=== PATIENT | female | born 1985 | race Caucasian/White ===

== ENCOUNTER → 2020-07-29 | Outpatient (CLI) | payer OTHER | LOC: M LABSMTC 10:36 | PROVIDERS: ATTEND Family Medicine | DX: Z20.828 Contact with and (suspected) exposure to other viral communicable diseases (principal) ==

== ENCOUNTER → 2020-08-04 | Outpatient (CLI) | payer SELFPAY | LOC: M LABSMTC 11:35 | PROVIDERS: ATTEND Pediatrics | DX: Z20.828 Contact with and (suspected) exposure to other viral communicable diseases (principal) ==

== ENCOUNTER 2020-09-15 18:33 | Inpatient (IN) | payer OTHER ==
[~2020-09-15] VITALS: Ht 148.6 cm; Wt 100.7 kg
[2020-09-15 20:15] VITALS: BP 146/93
[2020-09-15] MEDS ORDERED: NAPR220C23 PO (20:39)
--- NOTE | 2020-09-15 21:28 | HPEPDOC ---
General Date of Admission Sep 15, 2020 at 20:14 Date of Service: Sep 15, 2020 Chief Complaint The patient is a 35-year-old female admitted with a reason for visit of Obstructed Jaundice. Source: Patient Exam Limitations: No limitations Timing/Duration: Day(s) Severity: Moderate History of Present Illness Patient is 35 years old female with past medical history of gestational of diabetes presented to the hospital with right upper abdominal pain. Patient was transferred from [facility]. Patient stated that for past 4 days she has been having intermittent right upper quadrant pain with radiation to the back and to the right shoulder associated with nausea and vomiting. In the [facility] labs pertinent for white blood count 7.5, hemoglobin 14.8, glucose level 117, [id number], [id number], alkaline phosphatase 265, total bilirubin 5.4, lipase 113. CT abdomen and pelvis from a [facility] report: Distended gallbladder, not inflamed. Home Medications Scheduled PRN Naproxen Sodium (Naproxen Sodium) 220 Mg Capsule, 220 MG PO Q12H PRN for PAIN, (Reported) Allergies Coded Allergies: No Known Allergies (Verified Allergy, Unknown, 09/15/20) Past Medical History Medical History Gestational diabetes Family History I personally reviewed family history and found not pertinent Social History * Smoker: former Smoker Alcohol: Denies Drugs: denies A-FIB/CHADSVASC A-FIB History Current/History of A-Fib/PAF?: No Current PO Anticoag Therapy: No Review of Systems Constitutional: Denies: Chills Eyes: Denies: Pain, Vision change ENT: Denies: Head Aches Skin: Denies: Rash, Lesions Pulmonary: Denies: Dyspnea Cardiovascular: Denies: Chest Pain Gastrointestinal: Reports: Nausea, Vomiting, Abdominal Pain Genitourinary: Denies: Dysuria, Frequency Hematologic: Denies: Bruising Endocrine: Denies: Polydipsia Musculoskeletal: Denies: Neck Pain Neurological: Denies: Weakness Psych: Reports: Mood Normal Physical Examination General Exam: Positive: Alert, Cooperative Eye Exam: Positive: PERRLA ENT Exam: Positive: Atraumatic Neck Exam: Positive: Supple; Negative: JVD Chest Exam: Positive: Clear to auscultation Heart Exam: Positive: Rate Normal Telemetry: Positive: No significant arrhythmia Abdomen Exam: Positive: BS Hypoactive, Soft, Tenderness (right upper quadrant) Extremity Exam: Negative: Clubbing Skin Exam: Positive: Nl turgor and temperature Neuro Exam: Positive: Strength at 5/5 X4 ext Psych Exam: Positive: Mental status NL Assessment/Plan Patient is 35 years old female with past medical history of gestational of diabetes presented to the hospital with right upper abdominal pain. Patient was transferred from [facility]. Patient stated that for past 4 days she has been having intermittent right upper quadrant pain with radiation to the back and to the right shoulder associated with nausea and vomiting. In the [facility] labs pertinent for white blood count 7.5, hemoglobin 14.8, glucose level 117, [id number], GVO142, alkaline phosphatase 265, total bilirubin 5.4, lipase 113. CT abdomen and pelvis from a [facility] report: Distended gallbladder, not inflamed. Problems (1) Right upper quadrant abdominal pain Status: Acute Problem Text: Most likely secondary to choledocholithiasis Right upper quadrant ultrasound Consider GI consult in the morning. Nothing by mouth after midnight IV fluid Pain management Plan / VTE VTE Prophylaxis Ordered?: Yes MARKUS GARCIA DO Sep 15, 2020 21:28
[2020-09-15] MEDS ORDERED: ACETAMINOPHEN TAB 650MG DOSE (2X325MG) PO PRN (21:30)
[2020-09-15 22:20] LABS: INR 0.95; PROTHROMBIN TIME 12.9 SECONDS (12.5-14.3)
[2020-09-15 22:21] LABS: PARTIAL THROMBOPLASTIN TIME 27.5 SECONDS (24.2-38.5)
--- NOTE | 2020-09-15 22:28 | REPVR ---
PROCEDURE INFORMATION: Exam: US Abdomen, Limited; Right Upper Quadrant Exam date and time: 09/15/2020 10:16 PM Age: 35 years old Clinical indication: Abdominal pain; Acute; Additional info: Common bile duct dilatation TECHNIQUE: Imaging protocol: US abdomen. Real time ultrasound with image documentation. Limited exam focused on the right upper quadrant. COMPARISON: No relevant prior studies available. FINDINGS: Liver: The liver is echogenic and attenuating. Gallbladder: The gallbladder demonstrates multiple shadowing stones and sludge and measures 5.5 cm in diameter consistent with mild distention. The gallbladder demonstrates no wall thickening measuring 2-3 mm. There is slight pericholecystic fluid. Common bile duct: The CBD measures 10 mm with a shadowing intraductal stone measuring 11 mm. Pancreas: The pancreas appears grossly normal in the head and body. The tail is obscured by gas. Right kidney: The right kidney demonstrates no hydronephrosis and measures 12.2 cm. IMPRESSION: 1. Cholelithiasis with stones and sludge and mild gallbladder distention measuring 5.5 cm in diameter. There is no wall thickening but some pericholecystic fluid and may reflect cholecystitis. 2. Choledocholithiasis with distention of the CBD measuring 10 mm. 3. Fatty infiltration of the liver. Electronically signed by: Erich Vences On 09/15/2020 22:28:26 PM
[2020-09-15 22:39] LABS: ALBUMIN 3.8 GM/DL (3.2-5.2); ALT/SGPT 844 U/L (12-78); BILIRUBIN,TOTAL 5.4 MG/DL (0.2-1.0); BLOOD UREA NITROGEN 4 MG/DL (7-18); CALCIUM LEVEL 9.1 MG/DL (8.5-10.1); CARBON DIOXIDE LEVEL 28 MEQ/L (21-32); CHLORIDE LEVEL 104 MEQ/L (98-107); CREATININE FOR GFR 0.71 MG/DL (0.55-1.30); GLOMERULAR FILTRATION RATE > 60.0 (>60); GLUCOSE, FASTING 97 MG/DL (70-100); LIPASE 94 U/L (73-393); MAGNESIUM LEVEL 2.1 MG/DL (1.8-2.4); POTASSIUM SERUM 3.6 MEQ/L (3.5-5.1); SODIUM LEVEL 140 MEQ/L (136-145); TOTAL PROTEIN 7.8 GM/DL (6.4-8.2)
[2020-09-15] MEDS: NS 1,000 ML IV SCH (23:01)
[2020-09-15] MEDS: KETOROLAC 30 MG/ML 1ML VIAL IV PRN (23:06)
[2020-09-16] VITALS (8 sets, daily range): BP systolic 129–151; BP diastolic 65–95
[2020-09-16] MEDS ORDERED: ONDANSETRON 4MG/2ML VIAL IV PRN ×2 (01:00→19:30)
[2020-09-16 06:33] LABS: HEMATOCRIT 43.4 % (36.0-47.0); HEMOGLOBIN 14.1 g/dl (12.0-15.5); MEAN CORPUSCULAR HGB CONC 32.5 g/dl (32.0-36.5); MEAN CORPUSCULAR VOLUME 89.3 fl (80.0-96.0); PLATELET COUNT, AUTOMATED 253 10^3/uL (150-450); RED BLOOD COUNT 4.86 10^6/uL (4.00-5.40); WHITE BLOOD COUNT 6.8 10^3/uL (4.0-10.0)
[2020-09-16 07:20] LABS: ALBUMIN 3.5 GM/DL (3.2-5.2); ALT/SGPT 789 U/L (12-78); BILIRUBIN,TOTAL 5.5 MG/DL (0.2-1.0); BLOOD UREA NITROGEN 7 MG/DL (7-18); CALCIUM LEVEL 8.7 MG/DL (8.5-10.1); CARBON DIOXIDE LEVEL 27 MEQ/L (21-32); CHLORIDE LEVEL 107 MEQ/L (98-107); CREATININE FOR GFR 0.69 MG/DL (0.55-1.30); GLOMERULAR FILTRATION RATE > 60.0 (>60); GLUCOSE, FASTING 90 MG/DL (70-100); MAGNESIUM LEVEL 2.1 MG/DL (1.8-2.4); POTASSIUM SERUM 4.1 MEQ/L (3.5-5.1); SODIUM LEVEL 140 MEQ/L (136-145); TOTAL PROTEIN 7.2 GM/DL (6.4-8.2); TRIGLYCERIDES LEVEL 83 MG/DL (<150)
[2020-09-16] MEDS: ENOXAPARIN 40MG/0.4ML SYRINGE (J1650 PER 10MG) SC SCH (09:09)
[2020-09-16] MEDS: NS 1,000 ML IV SCH (09:09)
[2020-09-16] MEDS: KETOROLAC 30 MG/ML 1ML VIAL IV PRN ×2 (09:10→15:14)
--- NOTE | 2020-09-16 12:00 | IPNPDOC ---
Text Note Date of Service The patient was seen on 09/16/20. NOTE Subjective: No any acute events overnight. Objective: GENERAL APPEARANCE: NAD HEENT: no scleral icterus, no JVD, EOMI CARDIOVASCULAR: S1S2 LUNGS: CTA ABDOMEN: soft & right upper quadrant mildly tender w palpitation MUSCULOSKELETAL: no cyanosis, no swelling INTEGUMENT: no generalized pallor NEUROLOGICAL: cranial nerve function from 2-12 intact intact, follows commands, speech not dysarthric Assessment/Plan Patient is 35 years old female with past medical history of gestational of diabetes presented to the hospital with right upper abdominal pain. Patient was transferred from [facility]. Patient stated that for past 4 days she has been having intermittent right upper quadrant pain with radiation to the back and to the right shoulder associated with nausea and vomiting. In the [facility] labs pertinent for white blood count 7.5, hemoglobin 14.8, glucose level 117, [id number], [id number], alkaline phosphatase 265, total bilirubin 5.4, lipase 113. CT abdomen and pelvis from a [facility] report: Distended gallbladder, not inflamed. Problems (1) Right upper quadrant abdominal pain Most likely secondary to choledocholithiasis Right upper quadrant ultrasound showed 1. Cholelithiasis with stones and sludge and mild gallbladder distention measuring 5.5 cm in diameter. There is no wall thickening but some pericholecystic fluid and may reflect cholecystitis. 2. Choledocholithiasis with distention of the CBD measuring 10 mm. GI team will proceed with ERCP IV fluid Pain management VS,Fishbone, I+O VS, Fishbone, I+O Laboratory Tests 09/15/20 21:49 09/16/20 05:29 Vital Signs Date Time Temp Pulse Resp B/P (MAP) Pulse Ox O2 Delivery O2 Flow Rate FiO2 09/16/20 06:00 96.4 71 20 150/88 (108) 99 09/15/20 20:15 Room Air I&O- Last 24 Hours up to 6 AM 09/16/20 06:00 Intake Total 0 ml Output Total 400 ml Balance -400 ml MARKUS GARCIA DO Sep 16, 2020 12:00
--- NOTE | 2020-09-16 13:36 | CR.PDOC ---
General Date of Consultation: Sep 16, 2020 Referring Provider: MARKUS PEREZ DO Attending Physician: BRAYDEN MEDINA MD Consultation Referring physician/ hospitalist: Dr. Perez Reason for consult: abnormal LFT HPI: 35 year old female with medical history of gestational diabetes mellitus and gestation hypertension who presented to the hospital due to persistent nausea and vomiting with RUQ pain. Patient reports symptoms of RUQ pain initially began 5 months ago, about 3 days after a vaginal delivery of her third child. Patient describes the pain as sharp and intermittent, radiating to the back and up to the right shoulder blade. She states this initial episode improved and she was feeling well for a period of time. She then was infected with COVID-19 in late July and notes she experienced nausea and decrease appetite with episodes of lightheadedness. This was improving until 5 days ago when her RUQ pain returned. This continued to be intermittent, not associated with eating or drinking. Patient reports vomiting which started 3 days ago, consisting of foods she had e aten. Patient denies seeing blood in the vomit. Since that time she has noticed softer stool with a chalky color, denies diarrhea or blood in stool. Patient also denies having any fevers. Patient reports 3 days ago she went to the ED at [facility] and was told she had gallstones. She returned to the ER again yesterday due to persistent symptoms including inability to tolerate eating due to vomiting. She does also report taking an over the counter supplement recently. Pertinent negative GI symptoms: Patient denies diarrhea, early satiety, unintentional weight loss, hematemesis, melena, or hematochezia. Review of Systems: GI: as stated above CVS: No chest pain. No palpitations. No leg swelling. RS: No shortness of breath. No Wheezing. No cough. 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 No focal motor or sensory loss. Hematology: No easy bruising. No gum bleeding. Musculoskeletal: No joint pain, ambulating well. : No hematuria. No burning sensation of the urine. ENT: No ear discharge/pain. No dysphagia. Eyes: No photophobia. Skin: No rash Home medications: reviewed. No anticoagulants. No antiplatelets. Medical h/o: As above. Surgical h/o: None on abdomen. Social h/o: Denies alcohol, smoking, IVDA/other illicit substances Family h/o of GI cancers - None Prior Endoscopies: None Prior GI evaluations: None Exam: Vitals: reviewed General: Alert and oriented x 3, not in acute distress HEENT: Scleral icterus present. No pallor. Normal oropharynx, No cervical lymphadenopathy. Chest: symmetric with bilateral air entry, clear to auscultation. CVS: S1 and S2 heard, normal, no murmurs. Abdomen: mildly tender to deep palpation in the RUQ, obese, non-distended, soft, no rigidity or guarding, no palpable masses, normal bowel sounds auscultated. Rectal exam: Deferred at this time. Extremities: Pulses palpable, no pedal edema. 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 Moves all extremities Skin: No rash or jaundice. Labs: reviewed. Imaging: reviewed. Impression: -- Acute onset nausea, vomiting and upper abdominal pain and labs showing cholestatic liver panel and ultrasound showing Cholelithiasis and CBD stone with dilated CBD of 1cm. -- DDx-- Choledocholithiasis. Recommendations: -- NPO for now. -- IV hydration - prefer ringers lactate. -- Will schedule for ERCP today. Patient is educated about the procedure, in dications, risks ( including but not limited to acute pancreatitis, bleeding, infection, perforation, and other complicated related to them and anesthesia complication), benefits, alternatives including conservative monitoring. Patient verbalized understanding and consented for the procedure. -- Follow operative note for post procedure recommendations. Plan of care discussed with patient and primary team. Patient verbalized understanding and agreed with the plan. Vital Signs/I&O Vital Signs Date Time Temp Pulse Resp B/P (MAP) Pulse Ox O2 Delivery O2 Flow Rate FiO2 09/16/20 06:00 96.4 71 20 150/88 (108) 99 09/15/20 20:15 Room Air I&O- Last 24 Hours up to 6 AM 09/16/20 06:00 Intake Total 0 ml Output Total 400 ml Balance -400 ml Laboratory Data Labs 24H Laboratory Tests 2 09/15/20 21:49: Prothrombin Time 12.9, Prothromb Time International Ratio 0.95, Activated Partial Thromboplast Time 27.5, Anion Gap 8, Glomerular Filtration Rate > 60.0, Calcium Level 9.1, Magnesium Level 2.1, Total Bilirubin 5.4H, Aspartate Amino Transf (AST/SGOT) 428H, Alanine Aminotransferase (ALT/SGPT) 844H, Alkaline Phosphatase 266H, Total Protein 7.8, Albumin 3.8, Albumin/Globulin Ratio 1.0L, Lipase 94 09/16/20 05:29: Anion Gap 6L, Glomerular Filtration Rate > 60.0, Calcium Level 8.7, Magnesium Level 2.1, Total Bilirubin 5.5H, Aspartate Amino Transf (AST/SGOT) 410H, Alanine Aminotransferase (ALT/SGPT) 789H, Alkaline Phosphatase 257H, Total Protein 7.2, Albumin 3.5, Albumin/Globulin Ratio 0.9L, Nucleated Red Blood Cells % (auto) 0. 0, Triglycerides Level 83 CBC/BMP Laboratory Tests 09/15/20 21:49 09/16/20 05:29 Allergies Coded Allergies: No Known Allergies (Verified Allergy, Unknown, 09/15/20) Home Medications Scheduled PRN Naproxen Sodium (Naproxen Sodium) 220 Mg Capsule, 220 MG PO Q12H PRN for PAIN, (Reported) ANN MARIE SAMUELS D.O. Sep 16, 2020 10:29 BRAYDEN MEDINA MD Sep 16, 2020 16:18
[2020-09-16] MEDS ORDERED: MORPHINE 2 MG/ML 1ML VIAL (J2270) IV PRN (15:00)
[2020-09-16] MEDS ORDERED: ISOVUE-300 61% 50ML VIAL As Ordered ONE (15:03)
[2020-09-16] MEDS ORDERED: ROCURONIUM BROMIDE 50 MG/5 ML VIAL As Ordered ONE (16:04)
[2020-09-16] MEDS ORDERED: MIDAZOLAM INJ 2MG/2ML VIAL (J2250 PER 1MG) As Ordered ONE (16:04)
[2020-09-16] MEDS ORDERED: propofoL 200 MG/20 ML VIAL As Ordered ONE ×2 (16:04→16:39)
[2020-09-16] MEDS ORDERED: dexameTHASONE 4 MG/ML 1ML VIAL (J1100 PER 1MG) As Ordered ONE (16:04)
[2020-09-16] MEDS ORDERED: METOCLOPRAMIDE INJ 10MG/2ML VIAL (J2765 PER 1) As Ordered ONE (16:04)
[2020-09-16] MEDS ORDERED: fentaNYL 100 MCG/2 ML INJECTION (J3010) As Ordered ONE (16:04)
[2020-09-16] MEDS ORDERED: LIDOCAINE 2% 100MG/5ML SDV (FOR ANES.) As Ordered ONE (16:04)
[2020-09-16] MEDS ORDERED: ONDANSETRON 4MG/2ML VIAL As Ordered ONE ×2 (16:12→18:21)
[2020-09-16] MEDS ORDERED: GLUCAGON INJ 1MG VIAL As Ordered ONE (17:19)
[2020-09-16] MEDS ORDERED: ACETAMINOPHEN 1000MG 100ML IV BTL (OFIRMEV) (J0131 PER 10MG) As Ordered ONE (17:58)
--- NOTE | 2020-09-16 18:19 | ROOR ---
Patient Name: Pema Lugo Procedure Date: 09/16/2020 3:53 PM Date of : 1985 Age: 35 Room: Main OR Gender: Female Note Status: Finalized Procedure: ERCP Indications: Bile duct stone(s) Providers: Johnnie Daniels MD Referring MD: 2. Inpatient 2. Inpatient Requesting Provider: Medicines: Monitored Anesthesia Care Complications: No immediate complications. Procedure: Pre-Anesthesia Assessment: - Prior to the procedure, a History and Physical was performed, and patient medications and allergies were reviewed. The patient is competent. The risks and benefits of the procedure and the sedation options and risks were discussed with the patient. All questions were answered and informed consent was obtained. Patient identification and proposed procedure were verified by the physician, the nurse and the anesthesiologist in the procedure room. Mental Status Examination: alert and oriented. Airway Examination: normal oropharyngeal airway and neck mobility. Respiratory Examination: clear to auscultation. CV Examination: normal. Prophylactic Antibiotics: The patient does not require prophylactic antibiotics. Prior Anticoagulants: The patient has taken no previous anticoagulant or antiplatelet agents. ASA Grade Assessment: II - A patient with mild systemic disease. After reviewing the risks and benefits, the patient was deemed in satisfactory condition to undergo the procedure. The anesthesia plan was to use monitored anesthesia care (MAC). Immediately prior to administration of medications, the patient was re-assessed for adequacy to receive sedatives. The heart rate, respiratory rate, oxygen saturations, blood pressure, adequacy of pulmonary ventilation, and response to care were monitored throughout the procedure. The physical status of the patient was re-assessed after the procedure. The Duodenoscope was introduced through the mouth, and advanced to the duodenum and used to inject contrast into the bile duct and ventral pancreatic duct. The ERCP was accomplished without difficulty. The patient tolerated the procedure well. Findings: The fiberglass quality technician film was normal. The esophagus was successfully intubated under direct vision. The scope was advanced to a normal major papilla in the descending duodenum without detailed examination of the pharynx, larynx and associated structures, and upper GI tract. The upper GI tract was grossly normal. The ventral pancreatic duct was inadvertently cannulated with the short-nosed traction sphincterotome without any complications. One 4 Fr by 3 cm plastic stent with a 3/4 external pigtail and no internal flaps was placed into the ventral pancreatic duct. Clear fluid flowed through the stent. The stent was in good position. A short 0.021 inch Jagwire was passed into the biliary tree. The short-nosed traction sphincterotome was passed over the guidewire and the bile duct was then deeply cannulated. Contrast was injected. I personally interpreted the bile duct images. Ductal flow of contrast was adequate. Image quality was adequate. Contrast extended to the entire biliary tree. The main bile duct was not dilated. The main bile duct contained no stones. A 2 mm biliary sphincterotomy was made with a monofilament traction (standard) sphincterotome using ERBE electrocautery. There was no post-sphincterotomy bleeding. One 7 Fr by 7 cm plastic stent with a single external flap and a single internal flap was placed into the common bile duct. Bile flowed through the stent. The stent was in good position. Impression: - One plastic stent was placed into the ventral pancreatic duct. - A biliary sphincterotomy was performed. - One plastic stent was placed into the common bile duct. Recommendation: - Return patient to [facility] for [facility] care. - Patient has a contact number available for emergencies. The signs and symptoms of potential delayed complications were discussed with the patient. Return to normal activities tomorrow. Written discharge instructions were provided to the patient. - Continue present medications. - IV hydration ( with ringers lactate). - Check liver enzymes (AST, ALT, alkaline phosphatase, bilirubin) q 12 hours for one day. - Surgical consultation for consideration of cholecystectomy at appointment to be scheduled. - Return to GI clinic in [facility] (address [address], [address], [place], [facility]) in 4 -- 6 weeks. Please call GI clinic @ [phone] for apppointment date and time. - Repeat ERCP in 2 months to remove stent. - Return to primary care physician. Procedure Code(s): --- Professional --- 98870, Endoscopic retrograde cholangiopancreatography (ERCP); with placement of endoscopic stent into biliary or pancreatic duct, including pre- and post-dilation and guide wire passage, when performed, including sphincterotomy, when performed, each stent [id number], 59, Endoscopic retrograde cholangiopancreatography (ERCP); with placement of endoscopic stent into biliary or pancreatic duct, including pre- and post-dilation and guide wire passage, when performed, including sphincterotomy, when performed, each stent [id number], 26, Endoscopic catheterization of the biliary ductal system, radiological supervision and interpretation Diagnosis Code(s): --- Professional --- K80.50, Calculus of bile duct without cholangitis or cholecystitis without obstruction CPT copyright 2019 [employer]. All rights reserved. The codes documented in this report are preliminary and upon autopsy assistant review may be revised to meet current compliance requirements. Johnnie Daniels MD Johnnie Daniels MD 09/16/2020 6:19:38 PM Electronically signed by Johnnie Daniels MD Number of Addenda: 0 Note Initiated On: 09/16/2020 3:53 PM Estimated Blood Loss: Estimated blood loss was minimal.
--- NOTE | 2020-09-16 18:31 | REP ---
INDICATION: OBSTRUCTIVE JAUNDICE. COMPARISON: Comparison is made with sonography September 15, 2020. This showed choledocholithiasis.. TECHNIQUE: One hundred twenty-six views. 1 minutes 23 seconds of fluoroscopy time. FINDINGS: A sequence of 126 fluoroscopically obtained last image hold spot radiographs of the right upper quadrant document endoscopic cannulation, contrast injection, and stent positioning in the common bile duct. IMPRESSION: Procedural imaging. <Electronically signed by Ladarius Banegas > 09/16/20 [id number]
[2020-09-16 19:25] LABS: BASO # 0.1 10^3/uL (0.0-0.2); BASO % 0.5 % (0.0-1.0); EOS % 0.4 % (0.0-3.0); HEMATOCRIT 44.3 % (36.0-47.0); HEMOGLOBIN 14.7 g/dl (12.0-15.5); LYMPH # 1.1 10^3/uL (1.5-5.0); LYMPH % 11.3 % (24.0-44.0); MEAN CORPUSCULAR HEMOGLOBIN 29.1 pg (27.0-33.0); MEAN CORPUSCULAR HGB CONC 33.2 g/dl (32.0-36.5); MEAN CORPUSCULAR VOLUME 87.7 fl (80.0-96.0); MONO # 0.4 10^3/uL (0.0-0.8); MONO % 3.9 % (0.0-5.0); NEUTROPHILS % 83.3 % (36.0-66.0); PLATELET COUNT, AUTOMATED 234 10^3/uL (150-450); RED BLOOD COUNT 5.05 10^6/uL (4.00-5.40); WHITE BLOOD COUNT 9.6 10^3/uL (4.0-10.0)
[2020-09-16] MEDS: LR 1,000 ML IV SCH ×2 (19:26→20:42)
[2020-09-16] MEDS ORDERED: oxyCODONE 5MG TAB PO PRN (19:30)
[2020-09-16] MEDS ORDERED: LR 1,000 ML IV SCH (19:30)
[2020-09-16] MEDS ORDERED: fentaNYL 100 MCG/2 ML INJECTION (J3010) IV PRN (19:30)
[2020-09-16] MEDS ORDERED: HYDROMORPHONE HCL 0.5 MG/ 0.5 ML SYRINGE (J1170 PER 1) IV PRN (19:30)
[2020-09-16 19:44] LABS: ALBUMIN 3.7 GM/DL (3.2-5.2); BILIRUBIN,DIRECT 5.4 MG/DL (0.0-0.2); BILIRUBIN,TOTAL 6.1 MG/DL (0.2-1.0); TOTAL PROTEIN 7.4 GM/DL (6.4-8.2)
[2020-09-16] MEDS: CIPROFLOXACIN 400 MG in IV 1 EA IV SCH (21:48)
[2020-09-16] MEDS: PANTOPRAZOLE 40MG VIAL (C9113 PER 1) IV SCH (21:49)
--- NOTE | 2020-09-16 22:07 | REPVR ---
PROCEDURE INFORMATION: Exam: MR Abdomen Without Contrast; Liver Exam date and time: 09/16/2020 9:23 PM Age: 35 years old Clinical indication: Abnormal findings; Abnormal lab test; Elevated liver enzymes; Prior surgery; Surgery date: Post-operative (0-2 days); Surgery type: Ercp with stenting today; Additional info: Cholestatic liver panel TECHNIQUE: Imaging protocol: MR Abdomen without contrast. Exam focused on the liver. MRCP images were acquired and processed without radiologist supervision. 3D rendering (Not supervised by radiologist): MIP and/or 3D reconstructed images were created by the technologist. COMPARISON: 1. RF ERCP IN OR 09/16/2020 5:46 PM 2. LIVER US 09/15/2020 8:09:34 PM FINDINGS: Liver: The liver is enlarged and measures 19.9 cm in craniocaudal dimension of the level of the right midclavicular line. No liver lesion. The contour of the liver is smooth. Gallbladder and bile ducts: There are multiple gallstones in the distended gallbladder. No gallbladder wall thickening or pericholecystic inflammatory changes are noted. There is a stent in the mid to distal portion of the common bile duct extending into the 2nd portion of the duodenum. No other filling defects are identified in the common bile duct. The common bile duct is mildly dilated and measures 7 mm in diameter at the level of the agapito hepatis. Pancreas: Normal. No dilation of the main pancreatic duct is noted. There is no inflammatory fat stranding around the pancreas to suggest acute pancreatitis. Spleen: No splenic lesion is noted. The spleen is enlarged and measures 13.2 cm. Adrenals: Normal. No adrenal mass is noted. Kidneys and ureters: The kidneys are normal in appearance. No renal lesion. No hydronephrosis or hydroureter. Stomach and bowel: The imaged loops of small and large bowel are unremarkable. The bowel was not fully imaged. Retroperitoneal space: Unremarkable. No fluid collection. No mass. Intraperitoneal space: No fluid collection in the abdomen. Vasculature: The abdominal aorta is normal caliber. Soft tissues: Unremarkable. IMPRESSION: 1. Cholelithiasis without MR evidence for cholecystitis. 2. Mild intrahepatic biliary ductal dilation and dilation of the common bile duct. Stent in the mid to distal portion of the common bile duct extending into the 2nd portion of the duodenum. 3. Hepatosplenomegaly. Electronically signed by: Juancarlos Olivas On 09/16/2020 22:07:30 PM
[2020-09-17] VITALS: BP 150/88
[2020-09-17 02:00] VITALS: BP 149/90
[2020-09-17] MEDS: LR 1,000 ML IV SCH ×3 (02:54→13:17)
[2020-09-17] MEDS: KETOROLAC 30 MG/ML 1ML VIAL IV PRN (03:41)
[2020-09-17 05:59] LABS: HEMATOCRIT 41.1 % (36.0-47.0); HEMOGLOBIN 13.5 g/dl (12.0-15.5); MEAN CORPUSCULAR HEMOGLOBIN 29.4 pg (27.0-33.0); MEAN CORPUSCULAR HGB CONC 32.8 g/dl (32.0-36.5); MEAN CORPUSCULAR VOLUME 89.5 fl (80.0-96.0); PLATELET COUNT, AUTOMATED 236 10^3/uL (150-450); RED BLOOD COUNT 4.59 10^6/uL (4.00-5.40); WHITE BLOOD COUNT 9.3 10^3/uL (4.0-10.0)
[2020-09-17 06:00] VITALS: BP 147/85
[2020-09-17 06:09] LABS: PROTHROMBIN TIME 13.4 SECONDS (12.5-14.3)
[2020-09-17 06:31] LABS: ALBUMIN 3.2 GM/DL (3.2-5.2); ALT/SGPT 770 U/L (12-78); BILIRUBIN,DIRECT 4.3 MG/DL (0.0-0.2); BILIRUBIN,TOTAL 5.2 MG/DL (0.2-1.0); BLOOD UREA NITROGEN 5 MG/DL (7-18); CARBON DIOXIDE LEVEL 22 MEQ/L (21-32); CHLORIDE LEVEL 105 MEQ/L (98-107); CREATININE FOR GFR 0.57 MG/DL (0.55-1.30); GLOMERULAR FILTRATION RATE > 60.0 (>60); GLUCOSE, FASTING 84 MG/DL (70-100); POTASSIUM SERUM 3.9 MEQ/L (3.5-5.1); SODIUM LEVEL 136 MEQ/L (136-145); TOTAL PROTEIN 7.3 GM/DL (6.4-8.2)
[2020-09-17] MEDS: CIPROFLOXACIN 400 MG in IV 1 EA IV SCH (09:48)
[2020-09-17] MEDS: PANTOPRAZOLE 40MG VIAL (C9113 PER 1) IV SCH (09:48)
[2020-09-17] MEDS: ENOXAPARIN 40MG/0.4ML SYRINGE (J1650 PER 10MG) SC SCH (09:48)
[2020-09-17 10:00] VITALS: BP_SYST 144; BP_SYST 175; BP_DIAS 88; BP_DIAS 98
[2020-09-17 10:37] LABS: HEPATITIS A ANTIBODY IGM NEGATIVE (NEGATIVE); HEPATITIS B CORE ANTIBODY IGM NEGATIVE (NEGATIVE); HEPATITIS B SURFACE ANTIGEN NEGATIVE (NEGATIVE); HEPATITIS C VIRUS ABY INDEX 0.1 INDEX (<0.8)
--- NOTE | 2020-09-17 11:15 | IPNPDOC ---
Text Note Date of Service The patient was seen on 09/17/20. NOTE GASTROENTEROLOGY PROGRESS NOTE Subjective: 35 year old female with medical history of gestational diabetes mellitus and gestation hypertension who presented to the hospital due to persistent nausea and vomiting with RUQ pain. Patient states her pain is almost resolved this morning. She is feeling hungry and continues to eat ice chips as she is otherwise NPO. She denies current nausea. No vomiting or diarrhea. Patient had started taking a supplement called Joaquina a few months ago. She had taken a similar supplement prior to her most recent without any issues at that time. ERCP yesterday evening did not reveal obstructing CBD stone or CBD dilation. Objective: Vitals: reviewed General: Alert and oriented x 3, not in acute distress HEENT: Scleral icterus present. No pallor. Normal oropharynx, No cervical lymphadenopathy. Chest: symmetric with bilateral air entry, clear to auscultation. CVS: S1 and S2 heard, normal, no murmurs. Abdomen: mildly tender to deep palpation in the RUQ, obese, non-distended, soft, no rigidity or guarding, no palpable masses, normal bowel sounds auscultated. Rectal exam: Deferred at this time. Extremities: Pulses palpable, no pedal edema. ARMY MANAGER: No focal motor or sensory deficits. Moves all extremities Skin: No rash or jaundice. Labs: reviewed. Imaging: reviewed. Impression: -- Acute onset nausea, vomiting and upper abdominal pain and labs showing cholestatic liver panel and ultrasound showing Cholelithiasis and CBD stone with dilated CBD of 1cm, with ERCP performed showing no CBD dilation and MRCP significant for hepatosplenomegaly with mild intrahepatic biliary ductal dilation and dilation of the common bile duct. -- DDx -- Passed CBD stone vs Drug-induced hepatitis vs autoimmune hepatitis vs viral hepatitis Recommendations: -- Clear liquid diet and advance as tolerated -- IV hydration - prefer ringers lactate. -- Continue to trend liver panel ( Will repeat liver panel today and tomorrow) -- Check hepatitis profile, GUY, anti-smooth muscle antibody, LDH level. -- Consider Thiamine and folic acid supplementation. Supportive care. -- If Patient does not improve clinically or if Liver tests worsen, to consider CT abdomen with IV contrast liver protocol. -- Surgery consult recommended for evaluation for cholecystectomy Plan of care discussed with patient and primary team. Patient verbalized understanding and agreed with the plan. Helder DINH I+O VS, Fishbone, I+O Laboratory Tests 09/16/20 19:06 09/17/20 05:25 Vital Signs Date Time Temp Pulse Resp B/P (MAP) Pulse Ox O2 Delivery O2 Flow Rate FiO2 09/17/20 10:00 97.1 90 18 175/98 (123) 98 Room Air I&O- Last 24 Hours up to 6 AM 09/17/20 06:00 Intake Total 7652 ml Output Total 3550 ml Balance 4102 ml ANN MARIE SAMUELS D.O. Sep 17, 2020 11:15 BRAYDEN MEDINA MD Sep 17, 2020 15:26
--- NOTE | 2020-09-17 14:40 | IPNPDOC ---
Text Note Date of Service The patient was seen on 09/17/20. NOTE Subjective: No any acute events overnight. Patient tolerated procedure well Objective: GENERAL APPEARANCE: NAD HEENT: no scleral icterus, no JVD, EOMI CARDIOVASCULAR: S1S2 LUNGS: CTA ABDOMEN: soft & right upper quadrant mildly tender w palpitation MUSCULOSKELETAL: no cyanosis, no swelling INTEGUMENT: no generalized pallor NEUROLOGICAL: cranial nerve function from 2-12 intact intact, follows commands, speech not dysarthric Assessment/Plan Patient is 35 years old female with past medical history of gestational of diabetes presented to the hospital with right upper abdominal pain. Patient was transferred from [facility]. Patient stated that for past 4 days she has be en having intermittent right upper quadrant pain with radiation to the back and to the right shoulder associated with nausea and vomiting. In the [facility] labs pertinent for white blood count 7.5, hemoglobin 14.8, glucose level 117, [id number], [id number], alkaline phosphatase 265, total bilirubin 5.4, lipase 113. CT abdomen and [facility] report: Distended gallbladder, not inflamed. Problems (1) Right upper quadrant abdominal pain Most likely secondary to choledocholithiasis Right upper quadrant ultrasound showed 1. Cholelithiasis with stones and sludge and mild gallbladder distention measuring 5.5 cm in diameter. There is no wall thickening but some pericholecystic fluid and may reflect cholecystitis. 2. Choledocholithiasis with distention of the CBD measuring 10 mm. During ERCP One plastic stent was placed into the ventral pancreatic duct. A biliary sphincterotomy was performed. One plastic stent was placed into the common bile duct. Appreciate/agree with surgical team for possible cholecystectomy IV fluid Pain management Transaminitis Patient stated that she took [employer] supplement which can be cause of cholestasis We'll check hepatitis profile Antimitochondrial and anti-smooth antibody,GUY VS,Fishbone, I+O VS, Fishbone, I+O Laboratory Tests 09/16/20 19:06 09/17/20 05:25 Vital Signs Date Time Temp Pulse Resp B/P (MAP) Pulse Ox O2 Delivery O2 Flow Rate FiO2 09/17/20 10:00 97.1 90 18 144/88 (106) 98 Room Air I&O- Last 24 Hours up to 6 AM 09/17/20 06:00 Intake Total 7652 ml Output Total 3550 ml Balance 4102 ml DROZHZHIN,MARKUS DO Sep 17, 2020 14:40
[2020-09-17 16:27] LABS: LDH LACTATE DEHYDROGENASE 368 U/L (84-246)
[2020-09-17 18:28] LABS: ALBUMIN 3.6 GM/DL (3.2-5.2); BILIRUBIN,DIRECT 5.8 MG/DL (0.0-0.2); BLOOD UREA NITROGEN 5 MG/DL (7-18); CALCIUM LEVEL 9.5 MG/DL (8.5-10.1); CARBON DIOXIDE LEVEL 26 MEQ/L (21-32); CHLORIDE LEVEL 105 MEQ/L (98-107); CREATININE FOR GFR 0.75 MG/DL (0.55-1.30); GLOMERULAR FILTRATION RATE > 60.0 (>60); GLUCOSE, FASTING 100 MG/DL (70-100); POTASSIUM SERUM 3.4 MEQ/L (3.5-5.1); SODIUM LEVEL 140 MEQ/L (136-145); TOTAL PROTEIN 7.8 GM/DL (6.4-8.2)
[2020-09-17 18:29] LABS: ALBUMIN 3.6 GM/DL (3.2-5.2); ALT/SGPT 836 U/L (12-78); BILIRUBIN,TOTAL 6.9 MG/DL (0.2-1.0); TOTAL PROTEIN 7.4 GM/DL (6.4-8.2)
--- NOTE | 2020-09-18 18:04 | DS.PDOC ---
Discharge Summary General Date of Admission Sep 15, 2020 at 20:14 Date of Discharge 09/17/20 Discharge Summary PROCEDURES PERFORMED DURING STAY: ERCP ADMITTING DIAGNOSES: Right upper quadrant abdominal pain Transaminitis DISCHARGE DIAGNOSES: Right upper quadrant abdominal pain Transaminitis COMPLICATIONS/CHIEF COMPLAINT: Obstructed Jaundice. HISTORY OF PRESENT ILLNESS: Patient is 35 years old female with past medical history of gestational of diabetes presented to the hospital with right upper abdominal pain. Patient was transferred from [facility]. Patient stated that for past 4 days she has been having intermittent right upper quadrant pain with radiation to the back and to the right shoulder associated with nausea and vomiting. In the [facility] labs pertinent for white blood count 7.5, hemoglobin 14.8, glucose level 117, [id number], [id number], alkaline phosphatase 265, total bilirubin 5.4, lipase 113. CT abdomen and pelvis from a [facility] report: Distended gallbladder, not inflamed. HOSPITAL COURSE: Patient left the hospital AMA on 09/17/20 DISCHARGE MEDICATIONS: Please see below. ALLERGIES: Please see below. PHYSICAL EXAMINATION ON DISCHARGE: VITAL SIGNS: Please see below. GENERAL: HEENT: NECK: CARDIOVASCULAR EXAMINATION: RESPIRATORY EXAMINATION: ABDOMINAL EXAMINATION: EXTREMITIES: SKIN: NEUROLOGICAL EXAMINATION: PSYCHIATRIC EXAMINATION: LABORATORY DATA: Please see below. IMAGING: PROGNOSIS: ACTIVITY: [As tolerated]. DIET: DISCHARGE PLAN: DISPOSITION: 07 Against Medical Advice. DISCHARGE INSTRUCTIONS: 1. . ITEMS TO FOLLOWUP ON ON OUTPATIENT: 1. . DISCHARGE CONDITION: [Stable]. TIME SPENT ON DISCHARGE: Greater than minutes. Vital Signs/I&Os Vital Signs Date Time Temp Pulse Resp B/P (MAP) Pulse Ox O2 Delivery O2 Flow Rate FiO2 09/17/20 10:00 97.1 90 18 144/88 (106) 98 Room Air I&O- Last 24 Hours up to 6 AM 09/18/20 05:59 Intake Total 1920 ml Output Total 3000 ml Balance -1080 ml Discharge Medications Scheduled PRN Naproxen Sodium (Naproxen Sodium) 220 Mg Capsule, 220 MG PO Q12H PRN for PAIN, (Reported) Allergies Coded Allergies: No Known Allergies (Verified Allergy, Unknown, 09/15/20) MARKUS GARCIA DO Sep 18, 2020 18:04
[2020-09-18 23:17] LABS: ANA (HEP2) Positive (.); ANTI-SMOOTH MUSCLE ANTIBODY 5 Units (0-19)
== END 2020-09-17 17:56 | disposition left against medical advice (07) | DRG 251 ==
LOC: M MSPAV 20:14
PROVIDERS: ADMIT Internal Medicine; ATTEND Internal Medicine
PROC: 0FC98ZZ Extirpation of Matter from Common Bile Duct, Via Natural or Artificial Opening Endoscopic (ICD-10-PCS; 2020-09-16)
PROC: 0F7D8DZ Dilation of Pancreatic Duct with Intraluminal Device, Via Natural or Artificial Opening Endoscopic (ICD-10-PCS; principal; 2020-09-16 16:00)
DX: R10.11 Right upper quadrant pain (principal); R74.01 Elevation of levels of liver transaminase levels; R11.2 Nausea with vomiting, unspecified; Z86.32 Personal history of gestational diabetes; Z87.891 Personal history of nicotine dependence

== ENCOUNTER 2020-09-18 09:34 | Inpatient (IN) | payer OTHER ==
[~2020-09-18 09:34] MED LIST: NAPR220C23 PO
[2020-09-18 12:00] VITALS: BP 162/100
[2020-09-18 12:53] LABS: HEMATOCRIT 43.8 % (36.0-47.0); HEMOGLOBIN 14.4 g/dl (12.0-15.5); MEAN CORPUSCULAR HEMOGLOBIN 28.9 pg (27.0-33.0); MEAN CORPUSCULAR HGB CONC 32.9 g/dl (32.0-36.5); MEAN CORPUSCULAR VOLUME 87.8 fl (80.0-96.0); PLATELET COUNT, AUTOMATED 270 10^3/uL (150-450); RED BLOOD COUNT 4.99 10^6/uL (4.00-5.40); WHITE BLOOD COUNT 8.2 10^3/uL (4.0-10.0)
--- NOTE | 2020-09-18 13:10 | HPEPDOC ---
[facility] Medical History & Physical Date of Admission Sep 18, 2020 Date of Service: Sep 18, 2020 History and Physical Chief complaint: Who presented back to [facility] after she had left AGAINST ME DICAL ADVICE on 09/17 History of present illness: Patient is a 35-year-old female with a PMHx of Gestational DM2, who presented back to [facility] after she had left AGAINST MEDICAL ADVICE on 09/17. Patient was called in by the market development analyst for further evaluation. Patient had initially presented to [facility] on 09/15 as a transfer from [facility] with complaints of right upper abdominal pain associated with nausea and vomiting. Patient was admitted to the hospital service for further evaluation and treatment. Upon arrival, her liver function was noted to be abnormal with an elevation of her bilirubin. Gastroenterology and surgery were called on consultation. Patient was seen and evaluated by gastroenterology was performed stenting of her biliary duct via a plastic stent on 09/16. Patient was seen by surgery who had recommended that a cholecystectomy could be pursued as an outpatient. Despite biliary stenting her liver function failed to improve. Patient left AGAINST MEDICAL ADVICE on 09/17. Reports that she takes supplementation, True-Vision before . Patient has reported that after her /delivery on April 13. She was off of supplements for 6 weeks. Then resumed it after she was cleared from INVESTMENT MANAGER. Patient was taking for 3 months before she began to experience right upper abdominal pain. Currently patient reports that she has not experience any abdominal pain. Denies any nausea, vomiting or constipation. Reports that she did have a bowel movement this morning that was reported to be pale. Patient denies any chest pain, short of breath, palpitations or cough. Has not experience any fevers or chills. Denies any urinary discomfort. Patient denies any changes in her weight or her appetite. Past Medical History: Gestational DM Past Surgical History: Allergies: See below Medications: See below Family History: - Mother with history of thyroid problems - Father with a history of heart disease, stroke and elevated liver enzymes - Mothers side with a history of breast cancer and fathers side with a history of pancreatic cancer Social History: - Denies the use of illicit drugs; rare alcohol consumption. 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 [employer] Review of Systems: 10 point review of systems complete, all negative otherwise stated in HPI Physical exam: - Vitals: BP [162/100], HR [102], RR [18], Sat [97%RA], Temp [98.6F] - General: Lying in bed, No acute distress, Speaking in full sentences, AAOx3 - HEENT: NC, AT, PERRLA, Conjunctiva with jaundice noted - CVS: RRR, +S1S2 - Lungs: Fair air entry bilaterally, No appreciable wheezing / rales / rhonchi - Abdomen: Soft, Non-distended, Non-tender, Obese - Extremities: No lower extremity edema, No calf tenderness - Neuro: No focal motor or sensory deficit - Skin: No visible rashes Labs: See below Imaging: US abdomen 09/16: 1. Cholelithiasis with stones and sludge and mild gallbladder distention melissa uring 5.5 cm in diameter. There is no wall thickening but some pericholecystic fluid and may reflect cholecystitis. 2. Choledocholithiasis with distention of the CBD measuring 10 mm. 3. Fatty infiltration of the liver. MRI abdomen 09/16: 1. Cholelithiasis without MR evidence for cholecystitis. 2. Mild intrahepatic biliary ductal dilation and dilation of the common bile duct. Stent in the mid to distal portion of the common bile duct extending into the 2nd portion of the duodenum. 3. Hepatosplenomegaly. EKG: See below Assessment and Plan: Transaminitis - possibly 2/2 hepatotoxicity 2/2 medications, possibly 2/2 - Currently patient denies any abdominal pain or nausea and vomiting - Hemodynamically stable / Afebrile - Lab work pending - Prior imaging noted above - Awaiting lab work; will likely start [id number] - Consulted Dr. Daniels; appreciate their input Gestational DM - Currently not on therapy DVT prophylaxis - Will start TEDs/Sequentials Vital Signs Vital Signs Date Time Temp Pulse Resp B/P (MAP) Pulse Ox O2 Delivery O2 Flow Rate FiO2 09/18/20 12:00 98.6 102 18 162/100 (120) 97 Room Air Laboratory Data Labs 24H Laboratory Tests 2 09/18/20 11:49: Coronavirus (COVID-19)(PCR) NEGATIVE 09/18/20 12:35: Nucleated Red Blood Cells % (auto) 0.0 CBC/BMP Laboratory Tests 09/18/20 12:35 Home Medications Scheduled PRN Naproxen Sodium (Naproxen Sodium) 220 Mg Capsule, 220 MG PO Q12H PRN for PAIN Allergies Coded Allergies: No Known Allergies (Verified Allergy, Unknown, 09/15/20) TJ TOTH MD Sep 18, 2020 13:10
[2020-09-18] MEDS ORDERED: ACETYLCYSTEINE 0 MG in D5W 500 ML IV ONE (13:15)
[2020-09-18] MEDS ORDERED: ACETYLCYSTEINE 0 MG in D5W 1,000 ML IV ONE (13:15)
[2020-09-18] MEDS ORDERED: ACETYLCYSTEINE 0 MG in D5W 250 ML IV ONE (13:15)
[2020-09-18 13:31] LABS: ALBUMIN 4.1 GM/DL (3.2-5.2); ALT/SGPT 909 U/L (12-78); BILIRUBIN,TOTAL 7.5 MG/DL (0.2-1.0); BLOOD UREA NITROGEN 6 MG/DL (7-18); CALCIUM LEVEL 9.8 MG/DL (8.5-10.1); CARBON DIOXIDE LEVEL 27 MEQ/L (21-32); CHLORIDE LEVEL 101 MEQ/L (98-107); CREATININE FOR GFR 0.75 MG/DL (0.55-1.30); GLOMERULAR FILTRATION RATE > 60.0 (>60); GLUCOSE, FASTING 99 MG/DL (70-100); POTASSIUM SERUM 3.6 MEQ/L (3.5-5.1); SODIUM LEVEL 138 MEQ/L (136-145); TOTAL PROTEIN 7.8 GM/DL (6.4-8.2)
[2020-09-18 13:47] VITALS: BP 158/98
[2020-09-18 14:23] LABS: INR 0.91; PROTHROMBIN TIME 12.4 SECONDS (12.5-14.3)
[2020-09-18 14:24] LABS: PARTIAL THROMBOPLASTIN TIME 25.4 SECONDS (24.2-38.5)
[2020-09-18] MEDS ORDERED: SLF 3 ML SYR IV PRN (14:30)
[2020-09-18] MEDS: CIPROFLOXACIN 400 MG in IV 1 EA IV SCH (14:40)
[2020-09-18 14:54] LABS: HCG, SERUM QUALITATIVE NEGATIVE (NEGATIVE)
[2020-09-18 16:00] VITALS: BP 160/86
[2020-09-18] MEDS ORDERED: ISOVUE-370 76% 100ML VIAL As Ordered ONE (16:02)
--- NOTE | 2020-09-18 16:41 | REP ---
INDICATION: Elevated liver enzymes. Status post CBD stenting for choledocholithiasis. COMPARISON: Comparison MRI, ERCP, and right upper quadrant ultrasound from and 15 September 2020.. TECHNIQUE: Helical scanning is acquired and 3 mm axial images re-formatted. Coronal and sagittal MPR images are generated. The CT contrast enhancement dose is 100 mL of intravenous Isovue 370. FINDINGS: Digital preliminary bellhop radiograph is unremarkable. There is a linear pigtail catheter loop visualized in the right lower pelvis. Axial and MPR images in the right lower quadrant demonstrate that this length of pigtail catheter is within the lumen of the distal ileum. No obstructive changes are seen. Axial images also demonstrate that the patient's common bile duct catheter has dislodged from the common bile duct and is seen in the transverse duodenum. There is moderate diffuse fatty infiltration of the liver. There is mild intrahepatic and extrahepatic biliary ductal dilation. The common hepatic duct is somewhat prominent measuring 6 mm in greatest diameter. The common bile duct cannot be seen distal to this including the intrapancreatic segment of the CBD. Ultrasound and MRCP shows multiple small gallstones within the lumen of the gallbladder. These are not opaque and cannot be visualized by CT. The gallbladder is somewhat distended. It measures up to 11 cm in length. There is mild gallbladder wall thickening. No abnormality is noted within the pancreas. Normal adrenal glands are seen. The kidneys enhance symmetrically and are morphologically intact. No retroperitoneal mass or adenopathy is seen. No uterine or ovarian abnormality is observed. Urinary bladder is unremarkable. No abdominal wall defect is seen. IMPRESSION: 1. Common bile duct stent is seen horizontally oriented in the transverse duodenum. It is dislodged from the CBD. 2. There is a length of pigtail shaped catheter material in the distal ileum. No evidence of bowel obstruction. 3. intrahepatic biliary ductal dilation. Dilated gallbladder. Borderline common hepatic duct, 6 mm. The CBD cannot be seen in the pancreatic segment. The known stones are not mineralized. 4. Moderate fatty infiltration of the liver. <Electronically signed by Ladarius Banegas > 09/18/20 [id number]
[2020-09-18] MEDS ORDERED: ACETYLCYSTEINE 15,000 MG in D5W 250 ML IV ONE (17:00)
[2020-09-18] MEDS ORDERED: ONDANSETRON 4MG/2ML VIAL IV SCH (18:00)
[2020-09-18] MEDS ORDERED: ACETYLCYSTEINE 5,000 MG in D5W 500 ML IV ONE (18:00)
--- NOTE | 2020-09-18 18:22 | GIPN ---
[facility] GI Progress Note GI Progress Note DATE: Sep 18, 2020 GASTROENTEROLOGY PROGRESS NOTE Brief hospital summary: 35 year old female with medical history of gestational diabetes mellitus and gestation hypertension who initially presented to the hospital on 01/14/2021, due to persistent nausea and vomiting with RUQ pain. Patient also revealed taking TruVY for few months ( a OTC nutrition supplement). Patient was noted to have abnormal liver tests and cholestatic pattern of liver enzymes and ultrasound revealed possible cholelithiasis, choledocholithiasis and dilated CBD. Patient underwent ERCP on 01/14/2021 which showed small ampulla with non-dilated CBD but in view of multiple gallstones, patient was placed on CBD stent ( detailed report in provation/ operative notes). Patient post procedure had MRCP which showed mild dilated hepatic of 7 mm and no mention of CBD stones. Patient reported complete resolution of the abdominal pain and nausea and able to tolerate oral diet and she wanted to go home despite persistent abnormal liver tests. Patient eventually signed out AMA. Patient was noted to have worsening liver panel and was called back to get re-admitted and she came back on 09/18/2020. Patient continue to deny any abdominal pain except minimal abdominal discomfort. Patient was admitted for possible DILI vs CBD obstruction. Patient was started on NAC as per discussion of the possible diagnoses. Patient had CT abdomen with IV contrast - detailed report in EMR, which showed persistent dilated CBD. I personally reviewed the findings with radiologist and images. There is high suspicion of impacted stone/multiple stones in CBD based on all the prior images (stones are radiolucent and not seen in CT scan). So after discussion, patient was stopped on NAC infusion, placed back on NPO and IV fluids. Objective: Vitals: reviewed. Afebrile. normal BP. General: Alert and oriented x 3, not in acute distress HEENT: Scleral icterus present. No pallor. Normal oropharynx, No cervical lymphadenopathy. Chest: symmetric with bilateral air entry, clear to auscultation. CVS: S1 and S2 heard, normal, no murmurs. Abdomen: mildly tender to deep palpation in the RUQ, obese, non-distended, soft, no rigidity or guarding, no palpable masses, normal bowel sounds auscultated. Rectal exam: Deferred at this time. Extremities: Pulses palpable, no pedal edema. VISUAL AND STOCK ASSOCIATE: No focal motor or sensory deficits. Moves all extremities Labs: reviewed. Imaging: reviewed. Impression: -- Acute onset nausea, vomiting and upper abdominal pain and labs showing cholestatic liver panel in a patient with h/o use of OTC herbal medication, and ultrasound showing Cholelithiasis and CBD stone with dilated CBD of 1cm, with ERCP on 09/16/2020 showing no CBD dilation and MRCP significant for hepatosplenomegaly with mild intrahepatic biliary ductal dilation and borderline dilation of the common bile duct 7mm, CT scan showing passed CBD stent into the duodenum, -- DDx -- Persistent CBD stones vs less likely Drug-induced hepatitis. Recommendations: -- NPO for now. -- IV hydration - prefer ringers lactate. -- Continue to trend liver panel ( Will repeat liver panel today and tomorrow) -- NAC was stopped as per discussion with patient. -- Due to persistent worsening cholestasis and Imaging findings, as per discussion with radiology and patient, it was decided to repeat the ERCP tomorrow to treat the persistent CBD obstruction. Patient is educated about the procedure, indications, risks, benefits and all alternatives including IR intervention/ surgery / conservative / no intervention. Patient verbalized understanding and consented for the procedure. -- Also discussion with IR for possible PTC drain if there are impacted CBD stones. -- Empiric Ciprofloxacin for now. -- Follow up operative note for post operative recommendations. Plan of care discussed with patient and primary team. Patient verbalized understanding and agreed with the plan. Allergies Coded Allergies: No Known Allergies (Verified Allergy, Unknown, 09/15/20) Current Medications Current Medications Medications (Trade) Dose Ordered Sig/Liam Route PRN Reason Start Time Stop Time Status Last Admin Dose Admin Ciprofloxacin 400 mg/IV Miscellaneous Supplies 200 ml @ 200 mls/hr Q12H IV 09/18/20 15:00 09/18/20 14:40 Home Med (Med Rec Complete!) ASDIRECTED XX 09/18/20 13:30 09/18/20 13:23 DC Pantoprazole Sodium (Protonix) 40 mg BID IV 09/18/20 21:00 Sodium Chloride (Saline Lock Flush) 2 ml ASDIRECTED PRN IV SEE LABEL COMMENTS 09/18/20 14:30 Sodium Chloride (Saline Lock Flush) 2 ml SLF IV 09/18/20 22:00 VS,Fishbone, I+O VS, Fishbone, I+O Laboratory Tests 09/18/20 12:35 Vital Signs Date Time Temp Pulse Resp B/P (MAP) Pulse Ox O2 Delivery O2 Flow Rate FiO2 09/18/20 16:00 98.1 87 18 160/86 (110) 98 Room Air BRAYDEN MEDINA MD Sep 18, 2020 18:22
[2020-09-18] MEDS ORDERED: ONDANSETRON 4MG/2ML VIAL IV PRN (18:30)
[2020-09-18] MEDS ORDERED: IBUPROFEN 400MG TAB PO PRN (18:30)
[2020-09-18] MEDS: PANTOPRAZOLE 40MG VIAL (C9113 PER 1) IV SCH (19:45)
[2020-09-18] MEDS: SLF 3 ML SYR IV SCH (19:45)
[2020-09-18 20:00] VITALS: BP 142/78
[2020-09-18] MEDS ORDERED: LR 1,000 ML IV SCH (21:30)
[2020-09-18] MEDS: KETOROLAC 30 MG/ML 1ML VIAL IV PRN (21:56)
[2020-09-18] MEDS ORDERED: ACETYLCYSTEINE 10,000 MG in D5W 1,000 ML IV ONE (22:00)
[2020-09-18] MEDS ORDERED: IBUPROFEN 400MG TAB PO SCH (22:00)
[2020-09-19] VITALS (9 sets, daily range): BP systolic 132–152; BP diastolic 70–98
[2020-09-19] MEDS: CIPROFLOXACIN 400 MG in IV 1 EA IV SCH ×2 (03:31→15:54)
[2020-09-19] MEDS: KETOROLAC 30 MG/ML 1ML VIAL IV PRN ×3 (03:31→21:29)
[2020-09-19] MEDS: SLF 3 ML SYR IV SCH ×3 (04:42→22:00)
[2020-09-19 06:03] LABS: BASO # 0.1 10^3/uL (0.0-0.2); BASO % 0.7 % (0.0-1.0); EOS # 0.2 10^3/uL (0.0-0.5); EOS % 2.8 % (0.0-3.0); HEMATOCRIT 42.3 % (36.0-47.0); LYMPH # 1.5 10^3/uL (1.5-5.0); LYMPH % 21.1 % (24.0-44.0); MEAN CORPUSCULAR HEMOGLOBIN 28.8 pg (27.0-33.0); MEAN CORPUSCULAR HGB CONC 33.1 g/dl (32.0-36.5); MONO # 0.8 10^3/uL (0.0-0.8); MONO % 11.3 % (0.0-5.0); NEUTROPHILS # 4.5 10^3/uL (1.5-8.5); NEUTROPHILS % 63.7 % (36.0-66.0); PLATELET COUNT, AUTOMATED 230 10^3/uL (150-450); RED BLOOD COUNT 4.86 10^6/uL (4.00-5.40); WHITE BLOOD COUNT 7.1 10^3/uL (4.0-10.0)
[2020-09-19 06:24] LABS: BLOOD UREA NITROGEN 6 MG/DL (7-18); CALCIUM LEVEL 9.3 MG/DL (8.5-10.1); CARBON DIOXIDE LEVEL 27 MEQ/L (21-32); CHLORIDE LEVEL 102 MEQ/L (98-107); CREATININE FOR GFR 0.68 MG/DL (0.55-1.30); GLOMERULAR FILTRATION RATE > 60.0 (>60); GLUCOSE, FASTING 94 MG/DL (70-100); MAGNESIUM LEVEL 1.8 MG/DL (1.8-2.4); POTASSIUM SERUM 3.2 MEQ/L (3.5-5.1); SODIUM LEVEL 136 MEQ/L (136-145)
[2020-09-19] MEDS ORDERED: MIDAZOLAM INJ 2MG/2ML VIAL (J2250 PER 1MG) As Ordered ONE (06:54)
[2020-09-19] MEDS ORDERED: fentaNYL 100 MCG/2 ML INJECTION (J3010) As Ordered ONE ×2 (06:54→07:48)
[2020-09-19] MEDS ORDERED: propofoL 200 MG/20 ML VIAL As Ordered ONE (06:56)
[2020-09-19] MEDS ORDERED: SUCCINYLCHOLINE 100 MG/5 ML SYRINGE (J0330) As Ordered ONE (06:56)
[2020-09-19] MEDS ORDERED: dexameTHASONE 4 MG/ML 1ML VIAL (J1100 PER 1MG) As Ordered ONE (06:56)
[2020-09-19] MEDS ORDERED: LIDOCAINE 2% 100MG/5ML SDV (FOR ANES.) As Ordered ONE (06:56)
[2020-09-19] MEDS ORDERED: ONDANSETRON 4MG/2ML VIAL As Ordered ONE (06:56)
[2020-09-19] MEDS ORDERED: ISOVUE-300 61% 50ML VIAL As Ordered ONE (06:59)
[2020-09-19] MEDS ORDERED: SCOPOLAMINE 1MG TRANSDERMAL PATCH As Ordered ONE (07:23)
[2020-09-19] MEDS ORDERED: SCOPOLAMINE 1MG TRANSDERMAL PATCH TOP ONE (07:30)
[2020-09-19] MEDS ORDERED: KCL 10MEQ/100ML SWI (KRUN) 10 MEQ in IV 1 EA IV ONE (07:30)
[2020-09-19 07:58] LABS: ALBUMIN 3.2 GM/DL (3.2-5.2); ALT/SGPT 805 U/L (12-78); BILIRUBIN,DIRECT 6.4 MG/DL (0.0-0.2); BILIRUBIN,TOTAL 7.7 MG/DL (0.2-1.0); TOTAL PROTEIN 7.3 GM/DL (6.4-8.2)
[2020-09-19] MEDS ORDERED: METOCLOPRAMIDE INJ 10MG/2ML VIAL (J2765 PER 1) As Ordered ONE (08:21)
--- NOTE | 2020-09-19 09:21 | ROOR ---
Patient Name: Pema Lugo Procedure Date: 09/19/2020 7:26 AM Date of : 1985 Age: 35 Room: Main OR Gender: Female Note Status: Finalized Procedure: ERCP Indications: Bile duct stone(s), Jaundice, Elevated liver enzymes Providers: Johnnie Daniels MD Referring MD: 2. Inpatient 2. Inpatient Requesting Provider: Medicines: Monitored Anesthesia Care Complications: No immediate complications. Procedure: Pre-Anesthesia Assessment: - Prior to the procedure, a History and Physical was performed, and patient medications and allergies were reviewed. The patient is competent. The risks and benefits of the procedure and the sedation options and risks were discussed with the patient. All questions were answered and informed consent was obtained. Patient identification and proposed procedure were verified by the physician, the nurse and the anesthesiologist in the procedure room. Mental Status Examination: alert and oriented. Airway Examination: normal oropharyngeal airway and neck mobility. Respiratory Examination: clear to auscultation. CV Examination: normal. Prophylactic Antibiotics: The patient does not require prophylactic antibiotics. Prior Anticoagulants: The patient has taken no previous anticoagulant or antiplatelet agents. ASA Grade Assessment: II - A patient with mild systemic disease. After reviewing the risks and benefits, the patient was deemed in satisfactory condition to undergo the procedure. The anesthesia plan was to use monitored anesthesia care (MAC). Immediately prior to administration of medications, the patient was re-assessed for adequacy to receive sedatives. The heart rate, respiratory rate, oxygen saturations, blood pressure, adequacy of pulmonary ventilation, and response to care were monitored throughout the procedure. The physical status of the patient was re-assessed after the procedure. The Duodenoscope was introduced through the mouth, and advanced to the duodenum and used to inject contrast into the bile duct and ventral pancreatic duct. The ERCP was accomplished without difficulty. The patient tolerated the procedure well. Findings: A biliary stent ( with was spontaneous passed out of the CBD) was visible on the prepress manager film. The esophagus was successfully intubated under direct vision without detailed examination of the pharynx, larynx, and associated structures, and upper GI tract. The upper GI tract was grossly normal except for the plastic stent noted in duodenum. This was removed with snare. The major papilla was congested, erythematous and was small. A long 0.021 inch Jagwire was passed but it went into the ventral pancreatic duct. A seperate wire - 0.035 inch x 260 cm straight Hydra Jagwire was passed into the biliary tree. The short-nosed traction sphincterotome was passed over the guidewire and the bile duct was then deeply cannulated. Contrast was injected. I personally interpreted the bile duct images. Ductal flow of contrast was adequate. The main bile duct was not dilated. The largest diameter was 5 mm. The confluence of hepatic duct bifurcation and cystic duct contained filling defect(s) thought to be a stone. A 3 mm biliary sphincterotomy was made with a monofilament traction (standard) sphincterotome using ERBE electrocautery. The sphincterotomy oozed blood. The biliary tree was swept with a 9 mm balloon starting at the bifurcation. Sludge was swept from the duct. Stones were large and did not come out with balloon sweep. Lithotripsy with the mechanical lithotripter was unsuccessful. One 10 mm by 6 cm covered metal stent was placed into the common bile duct. Pus and sludge flowed through the stent. The stent was in good position. Impression: - The major papilla appeared congested. - The major papilla appeared erythematous. - The major papilla appeared to be small. - A filling defect consistent with a stone was seen on the cholangiogram at the confluence of hepatic duct bifurcation and Cystic duct. - A biliary sphincterotomy was performed. - The biliary tree was swept with 9 mm balloon and sludge was found. Stone could not be removed. - Lithotripsy was unsuccessful. - One covered metal stent was placed into the common bile duct. Recommendation: - [facility] care. - Avoid aspirin and nonsteroidal anti-inflammatory medicines. - Clear liquid diet for 1 day, then advance as tolerated to high fiber diet and low fat diet. - Use broad spectrum antibiotics for 7 days. - Surgical consultation for consideration of cholecystectomy at appointment to be scheduled. - Return to GI clinic in 3 months. - Return to primary care physician. Procedure Code(s): --- Professional --- 07851, Endoscopic retrograde cholangiopancreatography (ERCP); with placement of endoscopic stent into biliary or pancreatic duct, including pre- and post-dilation and guide wire passage, when performed, including sphincterotomy, when performed, each stent [id number], Endoscopic retrograde cholangiopancreatography (ERCP); with removal of calculi/debris from biliary/pancreatic duct(s) 96434, 26, Endoscopic catheterization of the biliary ductal system, radiological supervision and interpretation Diagnosis Code(s): --- Professional --- K80.50, Calculus of bile duct without cholangitis or cholecystitis without obstruction R17, Unspecified jaundice R74.8, Abnormal levels of other serum enzymes K83.8, Other specified diseases of biliary tract R93.2, Abnormal findings on diagnostic imaging of liver and biliary tract CPT copyright 2019 [employer]. All rights reserved. The codes documented in this report are preliminary and upon court collections officer review may be revised to meet current compliance requirements. Johnnie Daniels MD Johnnie Daniels MD 09/19/2020 9:20:19 AM Electronically signed by Johnnie Daniels MD Number of Addenda: 0 Note Initiated On: 09/19/2020 7:26 AM Estimated Blood Loss: Estimated blood loss was minimal.
[2020-09-19] MEDS ORDERED: oxyCODONE 5MG TAB PO PRN (09:45)
[2020-09-19] MEDS ORDERED: ONDANSETRON 4MG/2ML VIAL IV PRN (09:45)
[2020-09-19] MEDS ORDERED: fentaNYL 100 MCG/2 ML INJECTION (J3010) IV PRN (09:45)
[2020-09-19] MEDS ORDERED: HYDROMORPHONE HCL 0.5 MG/ 0.5 ML SYRINGE (J1170 PER 1) IV PRN (09:45)
[2020-09-19] MEDS ORDERED: LR 1,000 ML IV SCH ×2 (09:45→10:00)
--- NOTE | 2020-09-19 09:46 | REP ---
INDICATION: ERCP. COMPARISON: Comparison ERCP study 16 September 2020. Comparison is made with yesterday's CT and 16 September 2020 MRI study.. TECHNIQUE: One hundred fifty-six views. 1 minutes 31 seconds of fluoroscopy time is reported. FINDINGS: A sequence of 156 fluoroscopically obtained last image hold spot radiographs of the right upper quadrant taken during endoscopic procedures documents and Skopic cannulation, contrast injection, and stent placement in the common bile duct. A filling defect is seen in the proximal common bile duct 10 mm in diameter consistent with choledocholithiasis. IMPRESSION: Procedural imaging. ERCP. <Electronically signed by Ladarius Banegas > 09/19/20 0974
[2020-09-19] MEDS: PANTOPRAZOLE 40MG VIAL (C9113 PER 1) IV SCH ×2 (10:03→21:19)
[2020-09-19] MEDS: metroNIDAZOLE 500 MG in IV 1 EA IV SCH ×2 (12:58→21:19)
[2020-09-19] MEDS: MORPHINE 2 MG/ML 1ML VIAL (J2270) IV PRN ×2 (13:00→17:26)
[2020-09-19] MEDS ORDERED: POTASSIUM CHLORIDE 10 MEQ SR TABLET PO ONE (13:15)
[2020-09-19] MEDS: POTASSIUM CHLORIDE INJ 40 MEQ in LR 1,000 ML IV SCH (14:44)
[2020-09-19 17:33] LABS: ALBUMIN 3.3 GM/DL (3.2-5.2); ALT/SGPT 798 U/L (12-78); BILIRUBIN,TOTAL 3.5 MG/DL (0.2-1.0); BLOOD UREA NITROGEN 4 MG/DL (7-18); CARBON DIOXIDE LEVEL 30 MEQ/L (21-32); CHLORIDE LEVEL 104 MEQ/L (98-107); CREATININE FOR GFR 0.81 MG/DL (0.55-1.30); GLOMERULAR FILTRATION RATE > 60.0 (>60); GLUCOSE, FASTING 108 MG/DL (70-100); POTASSIUM SERUM 3.6 MEQ/L (3.5-5.1); SODIUM LEVEL 137 MEQ/L (136-145); TOTAL PROTEIN 7.4 GM/DL (6.4-8.2)
[2020-09-20 00:18] VITALS: BP 142/78
[2020-09-20] MEDS: POTASSIUM CHLORIDE INJ 40 MEQ in LR 1,000 ML IV SCH ×2 (03:22→07:59)
[2020-09-20] MEDS: CIPROFLOXACIN 400 MG in IV 1 EA IV SCH (03:22)
[2020-09-20] MEDS: MORPHINE 2 MG/ML 1ML VIAL (J2270) IV PRN (03:34)
[2020-09-20 05:35] LABS: BASO # 0.1 10^3/uL (0.0-0.2); BASO % 0.7 % (0.0-1.0); EOS # 0.2 10^3/uL (0.0-0.5); EOS % 1.8 % (0.0-3.0); HEMATOCRIT 40.6 % (36.0-47.0); HEMOGLOBIN 13.1 g/dl (12.0-15.5); LYMPH # 2.2 10^3/uL (1.5-5.0); LYMPH % 26.4 % (24.0-44.0); MEAN CORPUSCULAR HEMOGLOBIN 28.5 pg (27.0-33.0); MEAN CORPUSCULAR HGB CONC 32.3 g/dl (32.0-36.5); MEAN CORPUSCULAR VOLUME 88.3 fl (80.0-96.0); MONO # 0.8 10^3/uL (0.0-0.8); MONO % 9.2 % (0.0-5.0); NEUTROPHILS # 5.2 10^3/uL (1.5-8.5); NEUTROPHILS % 61.4 % (36.0-66.0); PLATELET COUNT, AUTOMATED 242 10^3/uL (150-450); WHITE BLOOD COUNT 8.5 10^3/uL (4.0-10.0)
[2020-09-20] MEDS: metroNIDAZOLE 500 MG in IV 1 EA IV SCH (05:44)
[2020-09-20] MEDS: SLF 3 ML SYR IV SCH (05:45)
[2020-09-20 05:52] VITALS: BP 140/78
[2020-09-20 05:59] LABS: ALBUMIN 3.3 GM/DL (3.2-5.2); ALT/SGPT 709 U/L (12-78); BILIRUBIN,DIRECT 1.8 MG/DL (0.0-0.2); BILIRUBIN,TOTAL 2.5 MG/DL (0.2-1.0); BLOOD UREA NITROGEN 6 MG/DL (7-18); CALCIUM LEVEL 8.4 MG/DL (8.5-10.1); CARBON DIOXIDE LEVEL 26 MEQ/L (21-32); CHLORIDE LEVEL 105 MEQ/L (98-107); CREATININE FOR GFR 0.75 MG/DL (0.55-1.30); GLOMERULAR FILTRATION RATE > 60.0 (>60); GLUCOSE, FASTING 106 MG/DL (70-100); MAGNESIUM LEVEL 1.7 MG/DL (1.8-2.4); POTASSIUM SERUM 3.8 MEQ/L (3.5-5.1); SODIUM LEVEL 139 MEQ/L (136-145); TOTAL PROTEIN 6.8 GM/DL (6.4-8.2)
[2020-09-20] MEDS ORDERED: MAGNESIUM OXIDE 400MG TAB (MAG-OX) PO ONE (06:30)
[2020-09-20 07:42] VITALS: BP 166/90
[2020-09-20] MEDS: PANTOPRAZOLE 40MG VIAL (C9113 PER 1) IV SCH (07:58)
[2020-09-20] MEDS: KETOROLAC 30 MG/ML 1ML VIAL IV PRN (07:58)
[2020-09-20] MEDS ORDERED: CIPR-249 PO ×2 (09:16→09:43)
[2020-09-20] MEDS ORDERED: FLAG500T PO ×2 (09:16→09:43)
[2020-09-20] MEDS ORDERED: PROT1TAB2 PO (09:16)
[2020-09-20] MEDS ORDERED: FAMO40TA3 PO (09:43)
[2020-09-20] MEDS ORDERED: TRAM50TA2 PO (11:25)
--- NOTE | 2020-09-20 12:16 | IPNPDOC ---
Text Note Date of Service The patient was seen on 09/19/20. NOTE Subjective: Patient is a 35-year-old female with a PMHx of Gestational DM2, who presented back to [facility] after she had left AGAINST MEDICAL ADVICE on 09/17. Patient was called in by the powder mixer for further evaluation. Patient had initially presented to [facility] on 09/15 as a transfer from [facility] with complaints of right upper abdominal pain associated with nausea and vomiting. Patient was admitted to the hospital service for further evaluation and treatment. Upon arrival, her liver function was noted to be abnormal with an elevation of her bilirubin. Gastroenterology and surgery were called on consultation. Patient was seen and evaluated by gastroenterology was performed stenting of her biliary duct via a plastic stent on 09/16. Patient was seen by surgery who had recommended that a cholecystectomy could be pursued as an outpatient. Despite biliary stenting her liver function failed to improve. Patient left AGAINST MEDICAL ADVICE on 09/17. Reports that she takes supplementation, True-Vision before . Patient has reported that after her /delivery on April 13. She was off of supplements for 6 weeks. Then resumed it after she was cleared from [employer]. Patient was taking for 3 months before she began to experience right upper abdominal pain. Patient was seen and examined at the bedside. Had reported that she felt better after the procedure. Denies any nausea, vomiting, but reported some abdominal pain. , Diarrhea, or urinary discomfort. Objective: Vitals (See below) General: Lying in bed, comfortable, AAOx3 HEENT: NC, AT CVS: RRR, +S1S2 Lungs: Fair air entry b/l, -w/r/r Abdomen: Soft, ND, NT Extremities: - Edema, - Calf tenderness Imaging: US abdomen 09/16: 1. Cholelithiasis with stones and sludge and mild gallbladder distention measuring 5.5 cm in diameter. There is no wall thickening but some pericholecystic fluid and may reflect cholecystitis. 2. Choledocholithiasis with distention of the CBD measuring 10 mm. 3. Fatty infiltration of the liver. MRI abdomen 09/16: 1. Cholelithiasis without MR evidence for cholecystitis. 2. Mild intrahepatic biliary ductal dilation and dilation of the common bile duct. Stent in the mid to distal portion of the common bile duct extending into the 2nd portion of the duodenum. 3. Hepatosplenomegaly. CT abdomen / pelvis 09/18: 1. Common bile duct stent is seen horizontally oriented in the transverse duodenum. It is dislodged from the CBD. 2. There is a length of pigtail shaped catheter material in the distal ileum. No evidence of bowel obstruction. 3. intrahepatic biliary ductal dilation. Dilated gallbladder. Borderline common hepatic duct, 6 mm. The CBD cannot be seen in the pancreatic segment. The known stones are not mineralized. 4. Moderate fatty infiltration of the liver. Assessment and plan: Transaminitis - possibly 2/2 stones, less likely 2/2 hepatotoxicity - Remains hemodynamically stable / Afebrile - Lab work with transaminitis; will repeat again this afternoon - Imaging noted above - s/p ERCP with metal stent placement - c/w Ciprofloxacin (Day #2); will add Metronidazole (Day #1) - Will start clear liquid diet for now - Consulted Dr. Daniels; appreciate their input Gestational DM - Currently not on therapy DVT prophylaxis - c/w TEDs/Sequentials VS,Fishbone, I+O VS, Fishbone, I+O Laboratory Tests 09/19/20 05:37 Vital Signs Date Time Temp Pulse Resp B/P (MAP) Pulse Ox O2 Delivery O2 Flow Rate FiO2 09/19/20 11:37 97.5 72 18 138/94 (109) 99 Room Air 09/19/20 09:16 10 I&O- Last 24 Hours up to 6 AM 09/19/20 06:00 Intake Total 1540 ml Output Total 2700 ml Balance -1160 ml TJ TOTH MD Sep 19, 2020 13:08
--- NOTE | 2020-09-20 12:24 | DS.PDOC ---
Discharge Summary General Date of Admission Sep 18, 2020 at 11:24 Date of Discharge 09/20/2019 Discharge Summary PROCEDURES PERFORMED DURING STAY: ERCP with stent placement on 09/[address] Daniels ADMITTING DIAGNOSES / DISCHARGE DIAGNOSES: Transaminitis - possibly 2/2 retained CBD stones (choledocholithiasis), less likely 2/2 hepatotoxicity Gastritis Gestational DM DVT prophylaxis COMPLICATIONS/CHIEF COMPLAINT: Hepatitis. HISTORY OF PRESENT ILLNESS: Patient is a 35-year-old female with a PMHx of Gestational DM2, who presented back to [facility] after she had left AGAINST MEDICAL ADVICE on 09/17. Patient was called in by the used car manager for further evaluation. Patient had initially presented to [facility] on 09/15 as a transfer from [facility] with complaints of right upper abdominal pain associated with nausea and vomiting. Patient was admitted to the hospital service for further evaluation and treatment. Upon arrival, her liver function was noted to be abnormal with an elevation of her bilirubin. Gastroenterology and surgery were called on consultation. Patient was seen and evaluated by gastroenterology was performed stenting of her biliary duct via a plastic stent on 09/16. Patient was seen by surgery who had recommended that a cholecystectomy could be pursued as an outpatient. Despite biliary stenting her liver function failed to improve. Patient left AGAINST MEDICAL ADVICE on 09/17. Reports that she takes supplementation, True-Vision before . Patient has reported that after her /delivery on April 13. She was off of supplements for 6 weeks. Then resumed it after she was cleared from [employer]. Patient was taking for 3 months before she began to experience right upper abdominal pain. This morning patient was seen sitting up in a couple and reported that she is not experiencing abdominal pain. Has not experience any nausea, vomiting, diarrhea, or discomfort with urination. Denies any chest pain or palpitations. HOSPITAL COURSE: Transaminitis - possibly 2/2 retained CBD stones (choledocholithiasis), less likely 2/2 hepatotoxicity - Has remained hemodynamically stable / Afebrile - Transaminitis has improved - Imaging noted above - ERCP on 09/16 with plastic stent placement did not alleviate the transaminitis and subsequent imaging had revealed that it was dislodged - s/p ERCP with metal stent placement on 09/19 - c/w Ciprofloxacin and Flagyl - will complete course as an outpatient - Diet will be fully advanced; if tolerating will DC home - Consulted Dr. Daniels; appreciate their input - Will have outpatient follow-up with gastroenterology and general surgery within the next 7 days Gastritis - Will DC Protonix - Will provide Famotidine on discharge Gestational DM - Currently not on therapy DVT prophylaxis - c/w TEDs/Sequentials DISCHARGE MEDICATIONS: Please see below. ALLERGIES: Please see below. PHYSICAL EXAMINATION ON DISCHARGE: Vitals (See below) General: Sitting up on the couch appears to be comfortable, is awake, alert HEENT: NC, AT CVS: +S1S2 Lungs: Air entry is fair bilaterally without any auscultated rhonchi, crackles or wheezing Abdomen: Abdomen remains soft without any appreciated tenderness or distention Extremities: No edema appreciated, - Calf tenderness LABORATORY DATA: Please see below. IMAGING: US abdomen 09/16: 1. Cholelithiasis with stones and sludge and mild gallbladder distention measuring 5.5 cm in diameter. There is no wall thickening but some pericholecystic fluid and may reflect cholecystitis. 2. Choledocholithiasis with distention of the CBD measuring 10 mm. 3. Fatty infiltration of the liver. MRI abdomen 09/16: 1. Cholelithiasis without MR evidence for cholecystitis. 2. Mild intrahepatic biliary ductal dilation and dilation of the common bile duct. Stent in the mid to distal portion of the common bile duct extending into the 2nd portion of the duodenum. 3. Hepatosplenomegaly. CT abdomen / pelvis 09/18: 1. Common bile duct stent is seen horizontally oriented in the transverse duodenum. It is dislodged from the CBD. 2. There is a length of pigtail shaped catheter material in the distal ileum. No evidence of bowel obstruction. 3. intrahepatic biliary ductal dilation. Dilated gallbladder. Borderline common hepatic duct, 6 mm. The CBD cannot be seen in the pancreatic segment. The known stones are not mineralized. 4. Moderate fatty infiltration of the liver. ACTIVITY: [As tolerated]. DISCHARGE PLAN: Follow-up with primary care provider, general surgery and gastroenterology within the next 7 days Remain compliant with treatment plan and medications Return to the ER if you experience any problems DISPOSITION: Home DISCHARGE CONDITION: [Stable]. TIME SPENT ON DISCHARGE: 35 minutes. Vital Signs/I&Os Vital Signs Date Time Temp Pulse Resp B/P (MAP) Pulse Ox O2 Delivery O2 Flow Rate FiO2 09/20/20 07:42 97.2 65 16 166/90 (115) 100 Room Air 09/19/20 09:16 10 I&O- Last 24 Hours up to 6 AM 09/20/20 06:00 Intake Total 4140 ml Output Total 3200 ml Balance 940 ml Laboratory Data Labs 24H Laboratory Tests 2 09/19/20 15:52: Anion Gap 3L, Glomerular Filtration Rate > 60.0, Calcium Level 9.0, Total Bilirubin 3.5#H, Aspartate Amino Transf (AST/SGOT) 367H, Alanine Ami notransferase (ALT/SGPT) 798H, Alkaline Phosphatase 270H, Total Protein 7.4, Albumin 3.3, Albumin/Globulin Ratio 0.8L 09/20/20 05:14: Anion Gap 8, Glomerular Filtration Rate > 60.0, Calcium Level 8.4L, Total Bilirubin 2.5H, Aspartate Amino Transf (AST/SGOT) 245H, Alanine Aminotransferase (ALT/SGPT) 709H, Alkaline Phosphatase 260H, Total Protein 6.8, Albumin 3.3, Albumin/Globulin Ratio 0.9L, Immature Granulocyte % (Auto) 0.5, Neutrophils (%) (Auto) 61.4, Lymphocytes (%) (Auto) 26.4, Monocytes (%) (Auto) 9.2H, Eosinophils (%) (Auto) 1.8, Basophils (%) (Auto) 0.7, Neutrophils # (Auto) 5.2, Lymphocytes # (Auto) 2.2, Monocytes # (Auto) 0.8, Eosinophils # (Auto) 0.2, Basophils # (Auto) 0.1, Nucleated Red Blood Cells % (auto) 0.0, Magnesium Level 1.7L, Direct Bilirubin 1.8H CBC/BMP Laboratory Tests 09/19/20 15:52 09/20/20 05:14 Discharge Medications Scheduled Ciprofloxacin HCl (Cipro) 500 Mg Tablet, 1 TAB PO BID Famotidine (Famotidine) 40 Mg Tablet, 1 TAB PO DAILY Metronidazole (Flagyl) 500 Mg Tablet, 1 TAB PO TID Scheduled PRN Tramadol HCl (Tramadol HCl) 50 Mg Tablet, 0.5 TAB PO Q6HP PRN for pain Allergies Coded Allergies: No Known Allergies (Verified Allergy, Unknown, 09/15/20) TJ TOTH MD Sep 20, 2020 12:15
== END 2020-09-20 12:19 | disposition home or self-care (01) ==
LOC: M MSPAV 11:24 → M PCU 11:49
PROVIDERS: ADMIT Internal Medicine Nephrology; ATTEND Internal Medicine
PROC: 0F798DZ Dilation of Common Bile Duct with Intraluminal Device, Via Natural or Artificial Opening Endoscopic (ICD-10-PCS; 2020-09-19)
PROC: 0FC98ZZ Extirpation of Matter from Common Bile Duct, Via Natural or Artificial Opening Endoscopic (ICD-10-PCS; principal; 2020-09-19 07:30)
DX: K80.50 Calculus of bile duct without cholangitis or cholecystitis without obstruction (principal); K29.70 Gastritis, unspecified, without bleeding; R74.01 Elevation of levels of liver transaminase levels; Z86.32 Personal history of gestational diabetes; Z87.891 Personal history of nicotine dependence

== ENCOUNTER → 2020-10-10 | Outpatient (CLI) | payer OTHER ==
[~2020-10-10] MED LIST changes: +CIPR-249 PO; +FAMO40TA3 PO; +FLAG500T PO; +IBUP200T45 PO; +ONDA-83 PO; +PROT1TAB2 PO; +TRAM50TA2 PO
== END ==
LOC: M LABSMTC 12:01
PROVIDERS: ATTEND Anesthesiology
DX: Z01.812 Encounter for preprocedural laboratory examination (principal); Z20.822 Contact with and (suspected) exposure to COVID-19

== ENCOUNTER 2020-10-14 08:30 | Inpatient (IN) | payer OTHER ==
[~2020-10-14] VITALS: Ht 149.9 cm; Wt 112.4 kg
[~2020-10-14 08:30] MED LIST changes: -IBUP200T45 PO; -ONDA-83 PO
[2020-10-14] MEDS ORDERED: IBUP200T45 PO (08:40)
[2020-10-14] MEDS ORDERED: ONDA-83 PO (08:40)
[2020-10-14] MEDS ORDERED: MORPHINE 4 MG/ML 1ML VIAL/SYRINGE (J2270) IV ONE ×2 (09:00→11:10)
[2020-10-14] MEDS ORDERED: METOCLOPRAMIDE INJ 10MG/2ML VIAL (J2765 PER 1) IV ONE (09:00)
[2020-10-14] MEDS ORDERED: NS 1,000 ML IV ONE (09:00)
[2020-10-14 09:24] LABS: BASO % 0.2 % (0.0-1.0); EOS % 0.1 % (0.0-3.0); HEMATOCRIT 41.4 % (36.0-47.0); HEMOGLOBIN 13.7 g/dl (12.0-15.5); LYMPH # 0.8 10^3/uL (1.5-5.0); LYMPH % 4.5 % (24.0-44.0); MEAN CORPUSCULAR HEMOGLOBIN 28.9 pg (27.0-33.0); MEAN CORPUSCULAR HGB CONC 33.1 g/dl (32.0-36.5); MEAN CORPUSCULAR VOLUME 87.3 fl (80.0-96.0); MONO # 1.5 10^3/uL (0.0-0.8); MONO % 8.6 % (2.0-8.0); NEUTROPHILS # 14.9 10^3/uL (1.5-8.5); PLATELET COUNT, AUTOMATED 286 10^3/uL (150-450); RED BLOOD COUNT 4.74 10^6/uL (4.00-5.40)
[2020-10-14 09:28] LABS: WHITE BLOOD COUNT 17.4 10^3/uL (4.0-10.0)
[2020-10-14 09:51] LABS: ALBUMIN 3.2 GM/DL (3.2-5.2); ALT/SGPT 52 U/L (12-78); AMYLASE 52 U/L (25-115); BILIRUBIN,DIRECT 1.3 MG/DL (0.0-0.2); BILIRUBIN,TOTAL 2.1 MG/DL (0.2-1.0); BLOOD UREA NITROGEN 5 MG/DL (7-18); CALCIUM LEVEL 8.9 MG/DL (8.5-10.1); CARBON DIOXIDE LEVEL 27 MEQ/L (21-32); CHLORIDE LEVEL 104 MEQ/L (98-107); CK-MB VALUE MASS < 1.0 NG/ML (<3.6); CPK CREATINE PHOSPHOKINASE 49 U/L (26-192); CREATININE FOR GFR 0.82 MG/DL (0.55-1.30); GLOMERULAR FILTRATION RATE > 60.0 (>60); GLUCOSE, FASTING 122 MG/DL (70-100); LIPASE 427 U/L (73-393); MB/CK RELATIVE INDEX 2.04 (< OR =4); POTASSIUM SERUM 3.5 MEQ/L (3.5-5.1); SODIUM LEVEL 138 MEQ/L (136-145); TOTAL PROTEIN 7.5 GM/DL (6.4-8.2); TROPONIN I < 0.02 NG/ML (< 0.10)
--- NOTE | 2020-10-14 10:05 | REP ---
INDICATION: RUQ TTP, h/o gallstones COMPARISON: None. TECHNIQUE: Real time jaquez scale ultrasound examination using curved array transducer. FINDINGS: Gallbladder demonstrates heterogeneous striated wall thickening to 12.3 mm along with pericholecystic fluid, mobile gallstones and sludge. Sonographic Wilkins sign was elicited. A possible stone lodged at the neck of the gallbladder cannot be excluded. The common bile duct measures 13.6 mm diameter with previously placed stent noted. The liver demonstrates diffuse fatty infiltration without obvious focal hepatic lesion. The pancreas is incompletely evaluated but visualized portions appear normal. Right kidney is normal without hydronephrosis and measures 12.8 x 5.3 x 4.6 cm. IMPRESSION: 1. Findings compatible with acute cholecystitis. Findings as described above including possible gallstone lodged at the gallbladder neck. 2. Common bile duct is dilated to 13.6 mm but previously placed CBD stent is identified. 3. Hepatosteatosis. <Electronically signed by Omero Grissom > 10/14/20 [id number]
[2020-10-14] MEDS ORDERED: PIPERACILLIN/TAZOBACTAM SOD 3.375 GM in D5W MINI-BAG PLUS 50 ML IV ONE (10:45)
[2020-10-14] MEDS ORDERED: FAMO40TA3 PO (10:50)
[2020-10-14] MEDS ORDERED: ACETAMINOPHEN 500 MG TAB PO ONE (13:15)
[2020-10-14] MEDS ORDERED: MOM 30ML SUSPENSION UDC PO PRN (14:10)
[2020-10-14] MEDS ORDERED: ACETAMINOPHEN TAB 650MG DOSE (2X325MG) PO PRN (14:10)
[2020-10-14] MEDS ORDERED: MAALOX 30 ML SUSP *UDC PO PRN (14:10)
[2020-10-14] MEDS ORDERED: ONDANSETRON 4MG/2ML VIAL IV PRN (14:10)
[2020-10-14] MEDS: HEPARIN SOD (PORCINE) 5000UNITS/ML 1ML VIAL/SYRINGE SC SCH ×2 (14:10→21:56)
[2020-10-14] MEDS ORDERED: PROHANCE 279.3MG/ML 5ML VIAL As Ordered ONE (14:15)
[2020-10-14] MEDS ORDERED: PROHANCE 279.3MG/ML 15ML VIAL As Ordered ONE (14:15)
[2020-10-14 14:21] LABS: RSV AMPLIFICATION NEGATIVE (NEGATIVE)
[2020-10-14 15:00] VITALS: BP 136/86
[2020-10-14] MEDS ORDERED: LR 1,000 ML IV ONE (15:25)
--- NOTE | 2020-10-14 15:39 | REP ---
INDICATION: r/o choledocolithiasis; r/o choledocolithiasis. COMPARISON: 09/16/2020. ultrasound today. TECHNIQUE: Multiple heavily T2 weighted sequences are obtained in the axial and coronal planes. 3D MIP reconstruction images are performed. Multiple sequences are also obtained in the axial and coronal planes prior to and following the intravenous administration of 20 mL ProHance. FINDINGS: The liver is enlarged. Length of the liver is approximately 22.4 cm. There is diffuse fatty infiltration of the liver. No focal liver lesion is visualized. The superior aspect of the liver and spleen are not imaged on the axial views. Spleen is mildly enlarged with a length of approximately 13.7 cm. The adrenal glands and pancreas are unremarkable. There is no pancreatic duct dilatation. The kidneys demonstrate no abnormality. The gallbladder is moderately distended and contains multiple subcentimeter calculi. There is significant diffuse wall thickening and edema of the gallbladder wall. There is mild adjacent free fluid in the right upper quadrant. The free fluid is primarily adjacent to the gallbladder and in the agapito hepatis. There is a subcentimeter calculus lodged at the junction of the neck of the gallbladder and cystic duct. Common bile duct stent is visualized with no internal filling defect. There is mild central intrahepatic biliary prominence. No significant periaortic adenopathy is seen. There is a mildly enlarged portal lymph node 1.3 cm in short axis dimension. IMPRESSION: Findings consistent with cholecystitis. Moderately distended gallbladder, with significant gallbladder wall thickening, irregularity and edema. Multiple subcentimeter calculi within the gallbladder lumen. There is a subcentimeter calculus in the neck of the gallbladder at the junction with the cystic duct. There is mild adjacent free fluid, adjacent to the gallbladder and in the agapito hepatis. A tiny amount of fluid surrounds the liver. Mildly enlarged portal lymph node measures 1.3 cm in short axis dimension. Mild prominence of central intrahepatic ducts. Common bile duct stent is noted with no internal filling defect. Diffuse fatty infiltration of the liver. Hepatosplenomegaly. <Electronically signed by Konstantin Camacho > 10/14/20 [id number]
--- NOTE | 2020-10-14 15:47 | HPEPDOC ---
[facility] Medical History & Physical Date of Admission Oct 14, 2020 Date of Service: Oct 14, 2020 History and Physical CHIEF COMPLAINT: diffuse abdominal pain worse in epigastrium HISTORY OF PRESENT ILLNESS: 35-year-old female with a history of gestational diabetes, presented to the [facility] ER from [facility] with epigastric pain since 10/12/20 without nausea and vomiting. Patient has a history of cholestasis, choledocholithiasis, which required ERCP with stenting of CBD x 2 due to persistent CBD obstruction. Patient was planned for an elective cholecystectomy by Dr. Machado on 10/15/20. Patient states that she is not expressing any fevers or chills, any nausea or vomiting and is not passing any blood in her stool nor she experiencing any hematemesis. On arrival to the ED, she was initially afebrile but then developed fever 100.9. White blood cell count revealed 17.4. Hemoglobin 13.7, NA 138, K+ 3.5. Fasting glucose 132. Total bilirubin 2.1. Regular 1.3. Alkaline phosphatase 136. Normal AST and ALT. Lipase 427. Her ultrasound shows findings compatible with acute cholecystitis as well as possible gallstone lodged in the gallbladder neck. There is CBD dilation to 13.6 mm but previously placed CBD stent is identified. There is additionally hepatic steatosis noted on ultrasound. Patient received IV bolus as well as started on Zosyn in the ER. Depression. I was consulted, recommended MRI of the abdomen with and without contrast. Although there does appear to be gallstone pancreatitis. It is relatively mild and he recommends treating this case as an acute cholecystitis. Surgery Dr. Machado was also consulted. Patient will be admitted to hospitalist service for management of sepsis secondary to acute cholecystitis. PAST MEDICAL HISTORY: Gestational diabetes COVID-19 in 04/2020 PAST SURGICAL HISTORY: ERCP x 2, s/p stenting x 2 SOCIAL HISTORY: 25 year PPD former smoker, quit Rare etoh use Denies illicits Lives with and 2 children FAMILY HISTORY: Mother with history of thyroid problems Father with a history of heart disease, stroke and elevated liver enzymes Mothers side with a history of breast cancer and fathers side with a history of pancreatic cancer ALLERGIES: Please see below. REVIEW OF SYSTEMS: 10 point review of systems conducted, pertinent findings were noted in HPI HOME MEDICATIONS: Please see below. PHYSICAL EXAMINATION: VITAL SIGNS: please see below General: NAD, comfortable HEENT: PERRLA, EOMI, sclerae clear Neck: supple, normal ROM, no JVD Respiratory: lungs CTAB, no wheeze, no rales, no crackles CVS: RRR, normal S1, S2, no murmurs Abdo: Diffuse abdominal pain and to palpation. Abdomen is obese. No guarding, no rigidity Extremities: no edema, pulses 2+ MSK: no joint deformities, normal ROM Neuro: no focal neuro deficits, moving all 4 extremities, CN2-12 intact. Strength 5/5 in all 4 extremities. No nystagmus. Psych: calm, cooperative, AAO x 3 LABORATORY DATA: See below. IMAGING: Liver ultrasound (10/14/20): 1. Findings compatible with acute cholecystitis. Findings as described above including possible gallstone lodged at the gallbladder neck. 2. Common bile duct is dilated to 13.6 mm but previously placed CBD stent is identified. 3. Hepatosteatosis. MICROBIOLOGY: Please see below. ASSESSMENT: 35-year-old female with a history of gestational diabetes, admitted for sepsis secondary to acute cholecystitis. She is a history of cholelithiasis as well as choledocholithiasis with CBD dilation, status post ERCP with stenting 2. Patient was planned for an elective cholecystectomy on 10/15/20, however, developed acute cholecystitis. Shortly after being brought up to the floor. She developed tachycardia with fevers as high as 102. Patient meeting sepsis criteria. PLAN: Sepsis likely 2/2 acute cholecystitis - WBC 17.4, T100.8 - given 1L NS bolus in ER. S/p 1 dose zosyn - blood cultures ordered subsequent to abx, therefore diagnostic value may be limited - patient is hemodynamically stable - ordered additional 1L bolus of LR. C/w maintenance fluids - empiric zosyn q6h Acute cholecystitis - liver US showing findings c/w acute cholecystitis, CBD dilated, prior stent is in place - MRCP, MRI abdo w and wo abdo pending - Dr. Daniels consulted, will f/u with MRCP - Dr. Machado consulted, will keep patient on schedule for tomorrow in case OR may be appropriate - NPO for now, ice chips ok Possible gallstone pancreatitis - lipase 427 - NPO, will introduce CLD tomorrow if appropriate Gestational DM - ISS, FSBS Vital Signs Vital Signs Date Time Temp Pulse Resp B/P (MAP) Pulse Ox O2 Delivery O2 Flow Rate FiO2 10/14/20 14:55 99.8 120 16 132/81 (98) 97 Room Air Laboratory Data Labs 24H Laboratory Tests 2 10/14/20 09:10: Immature Granulocyte % (Auto) 0.6, Neutrophils (%) (Auto) 86.0H, Lymphocytes (%) (Auto) 4.5L, Monocytes (%) (Auto) 8.6H, Eosinophils (%) (Auto) 0.1, Basophils (%) (Auto) 0.2, Neutrophils # (Auto) 14.9H, Lymphocytes # (Auto) 0.8L, Monocytes # (Auto) 1.5H, Eosinophils # (Auto) 0.0, Basophils # (Auto) 0.0, Nucleated Red Blood Cells % (auto) 0.0, Anion Gap 7L, Glomerular Filtration Rate > 60.0, Calcium Level 8.9, Total Bilirubin 2.1H, Direct Bilirubin 1.3H, Aspartate Amino Transf (AST/SGOT) 31, Alanine Aminotransferase (ALT/SGPT) 52, Alkaline Phosphatase 136H, Total Creatine Kinase 49, Creatine Kinase MB < 1.0, Creatine Kinase MB Relative Index 2.04, Troponin I < 0.02, Total Protein 7.5, Albumin 3.2, Albumin/Globulin Ratio 0.7L, Amylase Level 52, Lipase 427H, POC Beta HCG, Quantitative < 5.0 10/14/20 09:14: Urine Color SOLOMON, Urine Appearance HAZY, Urine pH 5.0, Urine Specific [place] 1.020, Urine Protein 2+H, Urine Glucose (UA) NEGATIVE, Urine Ketones 1+H, Urine Blood NEGATIVE, Urine Nitrite NEGATIVE, Urine Bilirubin NEGATIVE, Urine Urobilinogen 4.0H, Urine Leukocyte Esterase NEGATIVE, Urine WBC (Auto) 17H, Urine RBC (Auto) 1, Urine Hyaline Casts (Auto) 3, Urine Bacteria (Auto) 1+H, Urine Squamous Epithelial Cells 7, Urine Mucus (Auto) SMALL, Urine Sperm (Auto) 10/14/20 10:01: Lactic Acid Level 1.0 10/14/20 13:31: Coronavirus (COVID-19)(PCR) NEGATIVE, Influenza Type A (RT-PCR) NEGATIVE, Influenza Type B (RT-PCR) NEGATIVE, Respiratory Syncytial Virus (PCR) NEGATIVE CBC/BMP Laboratory Tests 10/14/20 09:10 Microbiology Microbiology 10/14/20 Urine Culture, Received Pending Home Medications Scheduled Famotidine (Famotidine) 40 Mg Tablet, 40 MG PO DAILY Scheduled PRN Ibuprofen (Ibu-200) 200 Mg Tablet, 600 MG PO QID PRN for PAIN Ondansetron HCl (Ondansetron HCl) 4 Mg Tablet, 4 MG PO Q4H PRN for NAUSEA OR VOMITING Allergies Coded Allergies: No Known Allergies (Verified Allergy, Unknown, 10/07/20) acetylcysteine (Verified Allergy, Unknown, ARM SWELLING, HIVES, DIZZY, 10/14/20) RAMONE AGUILAR MD Oct 14, 2020 15:47
[2020-10-14 16:40] LABS: BASO % 0.2 % (0.0-1.0); EOS % 0.1 % (0.0-3.0); HEMATOCRIT 36.6 % (36.0-47.0); HEMOGLOBIN 11.8 g/dl (12.0-15.5); LYMPH # 1.1 10^3/uL (1.5-5.0); LYMPH % 7.2 % (24.0-44.0); MEAN CORPUSCULAR HEMOGLOBIN 28.3 pg (27.0-33.0); MEAN CORPUSCULAR HGB CONC 32.2 g/dl (32.0-36.5); MEAN CORPUSCULAR VOLUME 87.8 fl (80.0-96.0); MONO # 1.2 10^3/uL (0.0-0.8); MONO % 7.8 % (2.0-8.0); NEUTROPHILS # 13.2 10^3/uL (1.5-8.5); NEUTROPHILS % 84.1 % (36.0-66.0); PLATELET COUNT, AUTOMATED 240 10^3/uL (150-450); RED BLOOD COUNT 4.17 10^6/uL (4.00-5.40); WHITE BLOOD COUNT 15.6 10^3/uL (4.0-10.0)
[2020-10-14 16:58] LABS: ALBUMIN 2.9 GM/DL (3.2-5.2); ALT/SGPT 45 U/L (12-78); BILIRUBIN,TOTAL 1.8 MG/DL (0.2-1.0); BLOOD UREA NITROGEN 6 MG/DL (7-18); CALCIUM LEVEL 8.3 MG/DL (8.5-10.1); CARBON DIOXIDE LEVEL 29 MEQ/L (21-32); CHLORIDE LEVEL 107 MEQ/L (98-107); CREATININE FOR GFR 0.62 MG/DL (0.55-1.30); GLOMERULAR FILTRATION RATE > 60.0 (>60); GLUCOSE, FASTING 112 MG/DL (70-100); POTASSIUM SERUM 3.4 MEQ/L (3.5-5.1); SODIUM LEVEL 141 MEQ/L (136-145); TOTAL PROTEIN 6.5 GM/DL (6.4-8.2)
[2020-10-14] MEDS: MORPHINE 2 MG/ML 1ML VIAL (J2270) IV PRN ×2 (17:02→21:57)
[2020-10-14 17:21] VITALS: BP 135/80
[2020-10-14] MEDS ORDERED: POTASSIUM CHLORIDE 10 MEQ SR TABLET PO ONE (17:25)
[2020-10-14 17:39] LABS: BILIRUBIN,DIRECT 1.2 MG/DL (0.0-0.2)
[2020-10-14] MEDS: PIPERACILLIN/TAZOBACTAM SOD 4.5 GM in D5W MINI-BAG PLUS 50 ML IV SCH ×2 (18:32→23:53)
[2020-10-14] MEDS ORDERED: GLUCOSE 4GM CHEW TABLET PO PRN (19:20)
[2020-10-14] MEDS ORDERED: GLUCAGON INJ 1MG VIAL SC PRN (19:20)
[2020-10-14] MEDS ORDERED: DEXTROSE 50% 50 ML SYRINGE IV PRN (19:20)
[2020-10-14] MEDS: LR 1,000 ML IV SCH (19:37)
[2020-10-14 20:00] VITALS: BP 136/86
[2020-10-14] MEDS: HumaLOG INSULIN (NovoLOG) PER UNIT SC SCH (21:00)
--- NOTE | 2020-10-14 21:06 | CR ---
CONSULTATION DATE OF CONSULTATION: 10/14/2020 CHIEF COMPLAINT: Cholecystitis, right upper quadrant pain. BRIEF HISTORY OF PRESENT ILLNESS: Patient is a 35-year-old female who had choledocholithiasis and when she had the choledocholithiasis her stent fell out, she had to have that replaced and then has been doing well for the first week after discharge but then developed abdominal pain several days prior to admission, underwent evaluation with an ultrasound and an MRI which revealed cholecystitis, no evidence of choledocholithiasis, the stent is in place. PAST MEDICAL HISTORY: Significant for history of gallstone pancreatitis as well as choledocholithiasis, history of gestational diabetes, history of smoking. PHYSICAL EXAMINATION: Reveals a 35-year-old female who looks stated age. HEENT is unremarkable. Neck supple without adenopathy. Lungs are clear to auscultation without crackles, wheezes, or rhonchi. Heart is regular without murmur. Abdomen is soft, nondistended, but she is tender in the right upper quadrant with guarding without significant rebound. Extremities are warm and well-perfused. IMPRESSION/PLAN: Patient has evidence of right upper quadrant pain, tenderness, elevated white count, inflammatory changes on the ultrasound as well as CT scan, all consistent with cholecystitis. However, she does have slightly elevated liver function tests as well as an amylase, and I do have concerns whether this may be associated with an additional stone that she may have passed or something up with the stent, thus I would recommend a gastrointestinal (GI) consultation. If followup labs in the morning are normalized for the liver function tests and amylase/lipase and not progressive, then I would recommend proceeding with a laparoscopic cholecystectomy tomorrow as scheduled, otherwise I would keep her on antibiotics at this time and nothing by mouth.
[2020-10-14] MEDS: DOCUSATE SODIUM 100MG CAPSULE PO SCH (21:56)
--- NOTE | 2020-10-14 23:17 | CR.PDOC ---
General Date of Consultation: Oct 14, 2020 Referring Provider: RAMONE MILLER MD Attending Physician: BRAYDEN MEDINA MD Consultation Referring physician/ hospitalist: Dr. Miller Reason for consult: Abdominal pain. HPI: 35 year old female patient with recent and h/o gestation HTN and Diabetes, was previously in [facility] in September 2020 for choledocholithiasis, requiring ERCP x 2 with covered metal stent placement, was planned for elective outpatient Cholecystectomy, now presented to ER for worsening right upper quadrant abdominal pain, and was admitted to [facility] for cholecystitis. Patient reports she was having intermittent gall bladder attacks with pain in right uppe r quadrant with nausea and she was doing dietary changes. She went to [facility] on Wednesday when she had severe abdominal pain, which improved and subsequently she was discharged, but she noted to have worsening severe upper abdominal pain, with nausea and vomiting since wednesday and she came to [facility] ER today for further management. Patient describes the current pain is involving more of the upper abdomen which extends from the right upper quadrant to epigastric and left upper abdomen. Patient denies any fever at home but she was noted to have fever spikes in [facility]. Pertinent negative GI symptoms: Patient denies diarrhea, early satiety, unintentional weight loss, hematemesis, melena, or hematochezia. Review of Systems: GI: as stated above CVS: No chest pain. No palpitations. No leg swelling. RS: No shortness of breath. No Wheezing. No cough. 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 No focal motor or sensory loss. Hematology: No easy bruising. No gum bleeding. Musculoskeletal: No joint pain, ambulating well. : No hematuria. No burning sensation of the urine. ENT: No ear discharge/pain. No dysphagia. Eyes: No photophobia. Skin: No rash Home medications: reviewed. No anticoagulants. No antiplatelets. Medical h/o: As above. Surgical h/o: None on abdomen. Social h/o: Denies alcohol, IVDA/other illicit substances. She quit smoking around 15 months ago. Family h/o of GI cancers - None Prior Endoscopies: ERCP in September 2020 - initially was placed on plastic CBD stent which got dislodged and had repeat ERCP with covered metal stent placement. Prior GI evaluations: Was seen by GI in last [facility] hospitalization in September 2020. Exam: Vitals: reviewed General: Alert and oriented x 3, moderate distress from abdominal pain. HEENT: NO scleral icterus. No pallor. Normal oropharynx, No cervical lymphadenopathy. Chest: symmetric with bilateral air entry, clear to auscultation. CVS: S1 and S2 heard, normal, no murmurs. Abdomen: moderately tender to deep palpation in the RUQ, obese, non-distended, soft, no rigidity or guarding, no palpable masses, normal bowel sounds aus cultated. Rectal exam: Deferred at this time. Extremities: Pulses palpable, no pedal edema. ELECTRICAL EQUIPMENT TECHNICIAN: No focal motor or sensory deficits. Moves all extremities Skin: No rash or jaundice. Labs: reviewed. Imaging: reviewed. Impression: -- Recurrent bouts of biliary colic with worsening right upper quadrant abdominal pain and Imaging tests showing dilated gall bladder with stone in cystic duct, and CBD stent patent in MRI, -- DDx -- Cholecystitis. vs unlikely Biliary stone. -- Mild elevated Bilirubin with normal transaminases and prior CBD stent placement, and mild elevated Lipase-- Likely from cholecystitis with adjacent inflammation vs Biliary pancreatitis from passed CBD stone. No evidence of cholangitis. Recommendations: -- NPO for now. -- IV hydration - prefer ringers lactate. -- Obtain Septic work up and IV antibiotics. -- Follow surgery recommendations. -- Will monitor liver panel and CBC every 12 hours and if any worsening of sepsis consider IR cholecystostomy or Surgery. -- GI will follow. Elective removal of the CBD covered metal stent after the cholecystectomy. Plan of care discussed with patient and primary team. Patient verbalized understanding and agreed with the plan. Vital Signs/I&O Vital Signs Date Time Temp Pulse Resp B/P (MAP) Pulse Ox O2 Delivery O2 Flow Rate FiO2 10/14/20 21:57 20 Room Air 10/14/20 20:00 98.6 125 136/86 (103) 95 Laboratory Data Labs 24H Laboratory Tests 2 10/14/20 09:10: Immature Granulocyte % (Auto) 0.6, Neutrophils (%) (Auto) 86.0H, Lymphocytes (%) (Auto) 4.5L, Monocytes (%) (Auto) 8.6H, Eosinophils (%) (Auto) 0.1, Basophils (%) (Auto) 0.2, Neutrophils # (Auto) 14.9H, Lymphocytes # (Auto) 0.8L, Monocytes # (Auto) 1.5H, Eosinophils # (Auto) 0.0, Basophils # (Auto) 0.0, Nucleated Red Blood Cells % (auto) 0.0, Anion Gap 7L, Glomerular Filtration Rate > 60.0, Calci um Level 8.9, Total Bilirubin 2.1H, Direct Bilirubin 1.3H, Aspartate Amino Transf (AST/SGOT) 31, Alanine Aminotransferase (ALT/SGPT) 52, Alkaline Phosphatase 136H, Total Creatine Kinase 49, Creatine Kinase MB < 1.0, Creatine Kinase MB Relative Index 2.04, Troponin I < 0.02, Total Protein 7.5, Albumin 3.2, Albumin/Globulin Ratio 0.7L, Amylase Level 52, Lipase 427H, POC Beta HCG, Quantitative < 5.0 10/14/20 09:14: Urine Color SOLOMON, Urine Appearance HAZY, Urine pH 5.0, Urine Specific [place] 1.020, Urine Protein 2+H, Urine Glucose (UA) NEGATIVE, Urine Ketones 1+H, Urine Blood NEGATIVE, Urine Nitrite NEGATIVE, Urine Bilirubin NEGATIVE, Urine Urobilinogen 4.0H, Urine Leukocyte Esterase NEGATIVE, Urine WBC (Auto) 17H, Urine RBC (Auto) 1, Urine Hyaline Casts (Auto) 3, Urine Bacteria (Auto) 1+H, Urine Squamous Epithelial Cells 7, Urine Mucus (Auto) SMALL, Urine Sperm (Auto) 10/14/20 10:01: Lactic Acid Level 1.0 10/14/20 13:31: Coronavirus (COVID-19)(PCR) NEGATIVE, Influenza Type A (RT-PCR) NEGATIVE, Influenza Type B (RT-PCR) NEGATIVE, Respiratory Syncytial Virus (PCR) NEGATIVE 10/14/20 16:22: Immature Granulocyte % (Auto) 0.6, Neutrophils (%) (Auto) 84.1H, Lymphocytes (%) (Auto) 7.2L, Monocytes (%) (Auto) 7.8, Eosinophils (%) (Auto) 0.1, Basophils (%) (Auto) 0.2, Neutrophils # (Auto) 13.2H, Lymphocytes # (Auto) 1.1L, Monocytes # (Auto) 1.2H, Eosinophils # (Auto) 0.0, Basophils # (Auto) 0.0, Nucleated Red Blood Cells % (auto) 0.0, Anion Gap 5L, Glomerular Filtration Rate > 60.0, Calcium Level 8.3L, Total Bilirubin 1.8H, Direct Bilirubin 1.2H, Aspartate Amino Transf (AST/SGOT) 22, Alanine Aminotransferase (ALT/SGPT) 45, Alkaline Phosphatase 123H, Total Protein 6.5, Albumin 2.9L, Albumin/Globulin Ratio 0.8L 10/14/20 21:48: Bedside Glucose (Misc Panel) 114H CBC/BMP Laboratory Tests 10/14/20 09:10 10/14/20 16:22 Microbiology Microbiology 10/14/20 Blood Culture, Received Pending 10/14/20 Blood Culture, Received Pending 10/14/20 Urine Culture, Received Pending Allergies Coded Allergies: No Known Allergies (Verified Allergy, Unknown, 10/07/20) acetylcysteine (Verified Allergy, Unknown, ARM SWELLING, HIVES, DIZZY, 10/14/20) Home Medications Scheduled Famotidine (Famotidine) 40 Mg Tablet, 40 MG PO DAILY, (Reported) Scheduled PRN Ibuprofen (Ibu-200) 200 Mg Tablet, 600 MG PO QID PRN for PAIN, (Reported) Ondansetron HCl (Ondansetron HCl) 4 Mg Tablet, 4 MG PO Q4H PRN for NAUSEA OR VOMITING, (Reported) BRAYDEN MEDINA MD Oct 14, 2020 23:17
[2020-10-15] VITALS (10 sets, daily range): BP systolic 127–144; BP diastolic 71–93
[2020-10-15] MEDS: LR 1,000 ML IV SCH (02:25)
[2020-10-15] MEDS: MORPHINE 2 MG/ML 1ML VIAL (J2270) IV PRN ×2 (02:25→07:02)
[2020-10-15] MEDS: NORCO, ANEXSIA 5/325MG TABLET (HYDROcodone/ACETAMINOPHEN) PO PRN ×2 (04:19→21:23)
[2020-10-15 05:08] LABS: BASO % 0.2 % (0.0-1.0); HEMATOCRIT 33.1 % (36.0-47.0); HEMOGLOBIN 10.8 g/dl (12.0-15.5); LYMPH # 0.9 10^3/uL (1.5-5.0); LYMPH % 5.7 % (24.0-44.0); MEAN CORPUSCULAR HEMOGLOBIN 28.7 pg (27.0-33.0); MEAN CORPUSCULAR HGB CONC 32.6 g/dl (32.0-36.5); MONO # 1.2 10^3/uL (0.0-0.8); MONO % 7.4 % (2.0-8.0); NEUTROPHILS # 13.6 10^3/uL (1.5-8.5); NEUTROPHILS % 85.8 % (36.0-66.0); PLATELET COUNT, AUTOMATED 210 10^3/uL (150-450); RED BLOOD COUNT 3.76 10^6/uL (4.00-5.40); WHITE BLOOD COUNT 15.9 10^3/uL (4.0-10.0)
[2020-10-15 05:35] LABS: ALBUMIN 2.4 GM/DL (3.2-5.2); ALT/SGPT 37 U/L (12-78); BILIRUBIN,TOTAL 1.9 MG/DL (0.2-1.0); BLOOD UREA NITROGEN 5 MG/DL (7-18); CARBON DIOXIDE LEVEL 27 MEQ/L (21-32); CHLORIDE LEVEL 105 MEQ/L (98-107); CREATININE FOR GFR 0.68 MG/DL (0.55-1.30); GLOMERULAR FILTRATION RATE > 60.0 (>60); GLUCOSE, FASTING 110 MG/DL (70-100); MAGNESIUM LEVEL 1.7 MG/DL (1.8-2.4); POTASSIUM SERUM 3.4 MEQ/L (3.5-5.1); SODIUM LEVEL 138 MEQ/L (136-145); TOTAL PROTEIN 6.9 GM/DL (6.4-8.2)
[2020-10-15] MEDS: HEPARIN SOD (PORCINE) 5000UNITS/ML 1ML VIAL/SYRINGE SC SCH ×3 (05:35→21:24)
[2020-10-15] MEDS: PIPERACILLIN/TAZOBACTAM SOD 4.5 GM in D5W MINI-BAG PLUS 50 ML IV SCH ×4 (05:48→23:50)
[2020-10-15] MEDS: HumaLOG INSULIN (NovoLOG) PER UNIT SC SCH ×4 (07:30→20:25)
[2020-10-15] MEDS ORDERED: MAG SULF 1GM/100ML (MAG RUN) 1 GM in IV 1 EA IV ONE (08:00)
[2020-10-15] MEDS ORDERED: ROCURONIUM BROMIDE 50 MG/5 ML VIAL ONE (08:25)
[2020-10-15] MEDS ORDERED: propofoL 200 MG/20 ML VIAL ONE (08:25)
[2020-10-15] MEDS ORDERED: MIDAZOLAM INJ 2MG/2ML VIAL (J2250 PER 1MG) ONE (08:25)
[2020-10-15] MEDS ORDERED: fentaNYL 100 MCG/2 ML INJECTION (J3010) ONE ×3 (08:26→11:40)
[2020-10-15] MEDS ORDERED: LR 1,000 ML IV ONE (09:00)
[2020-10-15] MEDS ORDERED: SCOPOLAMINE 1MG TRANSDERMAL PATCH TOP ONE ×2 (09:00)
[2020-10-15] MEDS ORDERED: KCL 10MEQ/100ML SWI (KRUN) 10 MEQ in IV 1 EA IV ONE ×2 (10:00→11:00)
[2020-10-15] MEDS ORDERED: BUPIVACAINE/EPIN 0.25% 30 ML VIAL As Ordered ONE (10:12)
[2020-10-15] MEDS ORDERED: ceFAZolin 1GM VIAL (J0690 PER 500MG) As Ordered ONE (10:12)
[2020-10-15] MEDS ORDERED: ONDANSETRON 4MG/2ML VIAL ONE (10:47)
[2020-10-15] MEDS ORDERED: ACETAMINOPHEN 1000MG 100ML IV BTL (OFIRMEV) (J0131 PER 10MG) ONE (10:47)
[2020-10-15] MEDS ORDERED: LIDOCAINE 2% 100MG/5ML SDV (FOR ANES.) ONE (10:47)
[2020-10-15] MEDS ORDERED: METOCLOPRAMIDE INJ 10MG/2ML VIAL (J2765 PER 1) ONE (10:47)
[2020-10-15] MEDS ORDERED: KETOROLAC 60MG 2ML VIAL ONE (10:47)
[2020-10-15] MEDS ORDERED: ESMOLOL INJ 100MG/10ML VIAL ONE (10:47)
[2020-10-15] MEDS ORDERED: dexameTHASONE 4 MG/ML 1ML VIAL (J1100 PER 1MG) ONE (10:47)
--- NOTE | 2020-10-15 11:57 | ECGEPIP ---
[facility] - ED Test Date: 2020-10-14 Pat Name: ALIX BRISCOE Department: Room: [place] [address] Gender: Female [employer]: ED : 1985 Requested By: CATERINA Chauhan PA-C Order Number: [id number] Reading MD: Kendall Tinoco Measurements Intervals [place] Rate: 122 P: 60 NH: 146 QRS: 39 QRSD: 76 T: 24 QT: 300 QTc: 427 Interpretive Statements Sinus tachycardia POOR R WAVE PROGRESSION NO PRIORS FOR COMPARISON Electronically Signed on 10-15-2020 11:56:50 EST by Kendall Tinoco
[2020-10-15] MEDS ORDERED: ZOSYN 4.5GM VIAL (J2543) As Ordered ONE (12:33)
[2020-10-15] MEDS ORDERED: HYDROMORPHONE HCL 0.5 MG/ 0.5 ML SYRINGE (J1170 PER 1) IV PRN (13:00)
[2020-10-15] MEDS ORDERED: LR 1,000 ML IV SCH (13:00)
[2020-10-15] MEDS ORDERED: oxyCODONE 5MG TAB PO PRN (13:00)
[2020-10-15] MEDS ORDERED: ONDANSETRON 4MG/2ML VIAL IV PRN (13:00)
[2020-10-15] MEDS ORDERED: fentaNYL 100 MCG/2 ML INJECTION (J3010) IV PRN (13:00)
--- NOTE | 2020-10-15 14:01 | IPNPDOC ---
Date Seen The patient was seen on 10/15/20. Progress Note SUBJECTIVE: OR today for acute cholecystectomy ,discussed with Dr. Machado prior to surgery. No acute events overnight. OBJECTIVE: PHYSICAL EXAMINATION: VITAL SIGNS: please see below General: NAD, comfortable HEENT: PERRLA, EOMI, sclerae clear Neck: supple, normal ROM, no JVD Respiratory: lungs CTAB, no wheeze, no rales, no crackles CVS: RRR, normal S1, S2, no murmurs Abdo: Diffuse abdominal pain and to palpation, constant. Abdomen is obese. No guarding, no rigidity Extremities: no edema, pulses 2+ MSK: no joint deformities, normal ROM Neuro: no focal neuro deficits, moving all 4 extremities, CN2-12 intact. Strength 5/5 in all 4 extremities. No nystagmus. Psych: calm, cooperative, AAO x 3 LABORATORY DATA: See below. IMAGING: MRI abdomen: Findings consistent with cholecystitis. Moderately distended gallbladder, with significant gallbladder wall thickening, irregularity and edema. Multiple subcentimeter calculi within the gallbladder lumen. There is a subcentimeter calculus in the neck of the gallbladder at the junction with the cystic duct. There is mild adjacent free fluid, adjacent to the gallbladder and in the agapito hepatis. A tiny amount of fluid surrounds the liver. Mildly enlarged portal lymph node measures 1.3 cm in short axis dimension. Mild prominence of central intrahepatic ducts. Common bile duct stent is noted with no internal filling defect. Diffuse fatty infiltration of the liver. Hepatosplenomegaly. Liver ultrasound (10/14/20): 1. Findings compatible with acute cholecystitis. Findings as described above including possible gallstone lodged at the gallbladder neck. 2. Common bile duct is dilated to 13.6 mm but previously placed CBD stent is identified. 3. Hepatosteatosis. MICROBIOLOGY: Please see below. ASSESSMENT: 35-year-old female with a history of gestational diabetes, admitted for sepsis secondary to acute cholecystitis. PLAN: Sepsis likely 2/2 acute cholecystitis -WBC minimally improved at 15.9, afebrile since 10/14/20, incr HR, LA wnl -MRI, US above -BCx pending -OR today for acute cholecystectomy -C/w zosyn, IVFs -General surgery consulted Possible gallstone pancreatitis -lipase 427, WBC 15K -T bili 1.9, AST/ALT wnl -GI consulted/ following- Elective removal of the CBD covered metal stent after the cholecystectomy Hypokalemia, acute -30 mEq replaced -Daily labs, replace PRN Hypomagnesemia, acute -Mag run today -F/u repeat mag in AM Gestational DM Hx - ISS, FSBS GI px -PPI DVT px -Heparin DISPOSITION: Or today by surgery, f/u GI recommendations. PT/OT when ok, plan is home when medically improved. VS, I&O, 24H, Fishbone Vital Signs/I&O Vital Signs Date Time Temp Pulse Resp B/P (MAP) Pulse Ox O2 Delivery O2 Flow Rate FiO2 10/15/20 13:35 16 96 Room Air 10/15/20 13:29 104 133/77 (95) 10/15/20 13:15 98 10/15/20 12:45 10 I&O- Last 24 Hours up to 6 AM 10/15/20 06:00 Intake Total 2475 ml Output Total 950 ml Balance 1525 ml Laboratory Data 24H LABS Laboratory Tests 2 10/14/20 16:22: Immature Granulocyte % (Auto) 0.6, Neutrophils (%) (Auto) 84.1H, Lymphocytes (%) (Auto) 7.2L, Monocytes (%) (Auto) 7.8, Eosinophils (%) (Auto) 0.1, Basophils (%) (Auto) 0.2, Neutrophils # (Auto) 13.2H, Lymphocytes # (Auto) 1.1L, Monocytes # (Auto) 1.2H, Eosinophils # (Auto) 0.0, Basophils # (Auto) 0.0, Nucleated Red Blood Cells % (auto) 0.0, Anion Gap 5L, Glomerular Filtration Rate > 60.0, Calci um Level 8.3L, Total Bilirubin 1.8H, Direct Bilirubin 1.2H, Aspartate Amino Transf (AST/SGOT) 22, Alanine Aminotransferase (ALT/SGPT) 45, Alkaline Phosphatase 123H, Total Protein 6.5, Albumin 2.9L, Albumin/Globulin Ratio 0.8L 10/14/20 21:48: Bedside Glucose (Misc Panel) 114H 10/15/20 04:48: Immature Granulocyte % (Auto) 0.9, Neutrophils (%) (Auto) 85.8H, Lymphocytes (%) (Auto) 5.7L, Monocytes (%) (Auto) 7.4, Eosinophils (%) (Auto) 0.0, Basophils (%) (Auto) 0.2, Neutrophils # (Auto) 13.6H, Lymphocytes # (Auto) 0.9L, Monocytes # (Auto) 1.2H, Eosinophils # (Auto) 0.0, Basophils # (Auto) 0.0, Nucleated Red Blood Cells % (auto) 0.0, Anion Gap 6L, Glomerular Filtration Rate > 60.0, Calcium Level 8.0L, Total Bilirubin 1.9H, Aspartate Amino Transf (AST/SGOT) 17, Alanine Aminotransferase (ALT/SGPT) 37, Alkaline Phosphatase 114, Total Protein 6.9, Albumin 2.4L, Albumin/Globulin Ratio 0.5L, Magnesium Level 1.7L CBC/BMP Laboratory Tests 10/14/20 16:22 10/15/20 04:48 Microbiology Microbiology 10/14/20 Blood Culture, Received Pending 10/14/20 Blood Culture, Received Pending 10/14/20 Urine Culture, Received Pending Current Medications Current Medications Medications (Trade) Dose Ordered Sig/Liam Route PRN Reason Start Time Stop Time Status Last Admin Dose Admin Acetaminophen (Tylenol Tab) 650 mg Q4H PRN PO PAIN OR FEVER 10/14/20 14:10 Acetaminophen/ Hydrocodone Bitart ([place], Anexsia 5/325) 1 tab Q4HP PRN PO MILD/MODERATE PAIN (PS 1-7) 10/14/20 14:10 10/15/20 04:19 Al Hydrox/Mg Hydrox/Simethicone (Mylanta) 30 ml DAILY PRN PO DYSPEPSIA 10/14/20 14:10 10/14/20 19:43 Dextrose (Dextrose 50%) 25 ml ASDIRECTED PRN IV SEE LABEL COMMENTS 10/14/20 19:20 Docusate Sodium (Colace) 100 mg BID PO 10/14/20 21:00 10/14/20 21:56 Fentanyl Citrate (Sublimaze) 25 mcg Q5MP PRN IV PAIN LEVEL 5-10 10/15/20 13:00 10/15/20 14:00 DC Glucagon (Glucagon) 1 mg ASDIRECTED PRN SC SEE LABEL COMMENTS 10/14/20 19:20 Glucose (Glucose) 16 GM ASDIRECTED PRN PO SEE LABEL COMMENTS 10/14/20 19:20 Heparin Sodium (Porcine) (Heparin) 5,000 units Q8H SC 10/14/20 14:10 10/14/20 21:56 Home Med (Med Rec Complete!) ASDIRECTED XX 10/14/20 10:50 10/14/20 10:52 DC Hydromorphone HCl (Dilaudid) 0.2 mg Q5MP PRN IV PAIN LEVEL 4-7 10/15/20 13:00 10/15/20 14:00 DC Insulin Human Lispro (HumaLOG INSULIN) SEE PROTOCOL TABLE AC SC 10/15/20 07:30 Insulin Human Lispro (HumaLOG INSULIN) SEE PROTOCOL TABLE QHS SC 10/14/20 21:00 Lactated Ringer's 1,000 ml @ 100 mls/hr Q10H IV 10/15/20 13:00 10/15/20 14:00 DC Lactated Ringer's 1,000 ml @ 175 mls/hr Q5H43M IV 10/14/20 15:25 10/15/20 08:55 DC 10/15/20 02:25 Magnesium Hydroxide (Milk Of Magnesia) 30 ml DAILY PRN PO CONSTIPATION 10/14/20 14:10 Morphine Sulfate (Morphine Sulfate Inj) 2 mg Q4H PRN IV SEVERE BREAKTHROUGH PAIN 10/14/20 14:10 10/15/20 07:02 Ondansetron HCl (ZOFRAN INJection) 4 mg Q4HP PRN IV NAUSEA OR VOMITING 10/14/20 14:10 Ondansetron HCl (ZOFRAN INJection) 4 mg Q4HP PRN IV NAUSEA OR VOMITING 10/15/20 13:00 10/15/20 14:00 DC Oxycodone HCl (Roxicodone, Oxyir) 5 mg ASDIRECTED PRN PO PAIN LEVEL 1-4 10/15/20 13:00 10/15/20 14:00 DC 10/15/20 13:35 Pantoprazole Sodium (Protonix) 40 mg DAILY IV 10/15/20 09:00 Piperacillin Sod/ Tazobactam Sod 4.5 gm/Dextrose 50 ml @ 50 mls/hr Q6H IV 10/14/20 17:00 10/15/20 12:43 Allergies Coded Allergies: No Known Allergies (Verified Allergy, Unknown, 10/07/20) acetylcysteine (Verified Allergy, Unknown, ARM SWELLING, HIVES, DIZZY, 10/14/20) Susannah Jimenez MD Oct 15, 2020 14:01
[2020-10-15] MEDS: KCL 10MEQ/100ML SWI (KRUN) 10 MEQ in IV 1 EA IV ONE ×2 (14:24→15:45)
[2020-10-15] MEDS: DOCUSATE SODIUM 100MG CAPSULE PO SCH ×2 (14:25→21:23)
[2020-10-15] MEDS: PANTOPRAZOLE 40MG VIAL (C9113 PER 1) IV SCH (14:25)
[2020-10-15] MEDS: KETOROLAC 30 MG/ML 1ML VIAL IV SCH ×2 (17:24→21:22)
[2020-10-15] MEDS ORDERED: POTASSIUM CHLORIDE 10 MEQ SR TABLET PO ONE (17:30)
[2020-10-16] VITALS: BP 118/72
[2020-10-16 04:00] VITALS: BP 122/76
[2020-10-16] MEDS: PIPERACILLIN/TAZOBACTAM SOD 4.5 GM in D5W MINI-BAG PLUS 50 ML IV SCH ×4 (04:19→21:49)
[2020-10-16] MEDS: KETOROLAC 30 MG/ML 1ML VIAL IV SCH ×4 (04:19→21:50)
[2020-10-16] MEDS: NORCO, ANEXSIA 5/325MG TABLET (HYDROcodone/ACETAMINOPHEN) PO PRN ×3 (04:20→22:35)
[2020-10-16 05:44] LABS: BASO % 0.2 % (0.0-1.0); HEMATOCRIT 33.6 % (36.0-47.0); HEMOGLOBIN 10.7 g/dl (12.0-15.5); LYMPH % 5.9 % (24.0-44.0); MEAN CORPUSCULAR HEMOGLOBIN 28.4 pg (27.0-33.0); MEAN CORPUSCULAR HGB CONC 31.8 g/dl (32.0-36.5); MEAN CORPUSCULAR VOLUME 89.1 fl (80.0-96.0); MONO # 0.9 10^3/uL (0.0-0.8); MONO % 5.4 % (2.0-8.0); NEUTROPHILS # 14.3 10^3/uL (1.5-8.5); NEUTROPHILS % 87.8 % (36.0-66.0); PLATELET COUNT, AUTOMATED 285 10^3/uL (150-450); RED BLOOD COUNT 3.77 10^6/uL (4.00-5.40); WHITE BLOOD COUNT 16.3 10^3/uL (4.0-10.0)
[2020-10-16 06:00] LABS: ALBUMIN 2.5 GM/DL (3.2-5.2); ALT/SGPT 52 U/L (12-78); BILIRUBIN,TOTAL 0.8 MG/DL (0.2-1.0); BLOOD UREA NITROGEN 9 MG/DL (7-18); CALCIUM LEVEL 8.1 MG/DL (8.5-10.1); CARBON DIOXIDE LEVEL 28 MEQ/L (21-32); CHLORIDE LEVEL 102 MEQ/L (98-107); CREATININE FOR GFR 0.73 MG/DL (0.55-1.30); GLOMERULAR FILTRATION RATE > 60.0 (>60); GLUCOSE, FASTING 103 MG/DL (70-100); MAGNESIUM LEVEL 2.3 MG/DL (1.8-2.4); POTASSIUM SERUM 3.7 MEQ/L (3.5-5.1); SODIUM LEVEL 137 MEQ/L (136-145); TOTAL PROTEIN 6.6 GM/DL (6.4-8.2)
[2020-10-16] MEDS: HEPARIN SOD (PORCINE) 5000UNITS/ML 1ML VIAL/SYRINGE SC SCH ×3 (06:47→21:51)
[2020-10-16] MEDS: HumaLOG INSULIN (NovoLOG) PER UNIT SC SCH ×4 (07:30→21:00)
[2020-10-16 08:00] VITALS: BP 137/74
[2020-10-16] MEDS: DOCUSATE SODIUM 100MG CAPSULE PO SCH ×2 (08:13→21:51)
[2020-10-16] MEDS: PANTOPRAZOLE 40MG VIAL (C9113 PER 1) IV SCH (08:13)
--- NOTE | 2020-10-16 12:53 | IPNPDOC ---
Date Seen The patient was seen on 10/16/20. Progress Note SUBJECTIVE: POD 1 cholecystectomy, possible perforation suspected due to amount of pus seen. CAROLYN drain has 50 mL of serosanguinous/pus. Encouraging to walk the halls today, pain better controlled. No acute events overnight. OBJECTIVE: PHYSICAL EXAMINATION: VITAL SIGNS: please see below General: NAD, comfortable HEENT: PERRLA, EOMI, sclerae clear Neck: supple, normal ROM, no JVD Respiratory: lungs CTAB, no wheeze, no rales, no crackles CVS: RRR, normal S1, S2, no murmurs Abdo: Diffuse abdominal pain and to palpation, constant. Abdomen is obese. No guarding, no rigidity. CAROLYN drain in place Extremities: no edema, pulses 2+ MSK: no joint deformities, normal ROM Neuro: no focal neuro deficits, moving all 4 extremities, CN2-12 intact. Strength 5/5 in all 4 extremities. No nystagmus. Psych: calm, cooperative, AAO x 3 LABORATORY DATA: See below. IMAGING: MRI abdomen: Findings consistent with cholecystitis. Moderately distended gallbladder, with significant gallbladder wall thickening, irregularity and edema. Multiple subcentimeter calculi within the gallbladder lumen. There is a subcentimeter calculus in the neck of the gallbladder at the junction with the cystic duct. There is mild adjacent free fluid, adjacent to the gallbladder and in the agapito hepatis. A tiny amount of fluid surrounds the liver. Mildly enlarged portal lymph node measures 1.3 cm in short axis dimension. Mild prominence of central intrahepatic ducts. Common bile duct stent is noted with no internal filling defect. Diffuse fatty infiltration of the liver. Hepatosplenomegaly. Liver ultrasound (10/14/20): 1. Findings compatible with acute cholecystitis. Findings as described above including possible gallstone lodged at the gallbladder neck. 2. Common bile duct is dilated to 13.6 mm but previously placed CBD stent is identified. 3. Hepatosteatosis. MICROBIOLOGY: Please see below. ASSESSMENT: 35-year-old female with a history of gestational diabetes, admitted for sepsis secondary to acute cholecystitis. PLAN: Acute cholecystitis with likely perforation, resolved sepsis -POD 1 cholecystectomy -WBC incr to 16.3, afebrile since 10/14/20, improved HR, LA wnl -MRI, US above -BCx NG, path pending -C/w zosyn, IVFs , advanced diet -General surgery, GI consulted . Plan to leave drain in another day, possible d/c tomorrow. Possible gallstone pancreatitis -lipase 427 -T bili , AST/ALT wnl -GI consulted/ following- Elective removal of the CBD covered metal stent after the cholecystectomy likely to be discussed as o/p Hypokalemia, acute- resolved Hypomagnesemia, acute- resolved Gestational DM Hx - ISS, FSBS GI px -PPI DVT px -Heparin DISPOSITION: Possible d/c to home 10/17/20 VS, I&O, 24H, Fishbone Vital Signs/I&O Vital Signs Date Time Temp Pulse Resp B/P (MAP) Pulse Ox O2 Delivery O2 Flow Rate FiO2 10/16/20 08:00 98.5 74 16 137/74 (95) 100 Room Air 10/15/20 12:45 10 I&O- Last 24 Hours up to 6 AM 10/16/20 06:00 Intake Total 5125 ml Output Total 790 ml Balance 4335 ml Laboratory Data 24H LABS Laboratory Tests 2 10/15/20 20:05: Bedside Glucose (Misc Panel) 133H 10/16/20 05:02: Immature Granulocyte % (Auto) 0.7, Neutrophils (%) (Auto) 87.8H, Lymphocytes (%) (Auto) 5.9L, Monocytes (%) (Auto) 5.4, Eosinophils (%) (Auto) 0.0, Basophils (%) (Auto) 0.2, Neutrophils # (Auto) 14.3H, Lymphocytes # (Auto) 1.0L, Monocytes # (Auto) 0.9H, Eosinophils # (Auto) 0.0, Basophils # (Auto) 0.0, Nucleated Red Blood Cells % (auto) 0.0, Anion Gap 7L, Glomerular Filtration Rate > 60.0, Calcium Level 8.1L, Magnesium Level 2.3, Total Bilirubin 0.8#, Aspartate Amino Transf (AST/SGOT) 32, Alanine Aminotransferase (ALT/SGPT) 52, Alkaline Phosphatase 132H, Total Protein 6.6, Albumin 2.5L, Albumin/Globulin Ratio 0.6L 10/16/20 12:20: Bedside Glucose (Misc Panel) 91 CBC/BMP Laboratory Tests 10/16/20 05:02 Microbiology Microbiology 10/14/20 Blood Culture - Preliminary, Resulted No growth after 24 hours . All specim... 10/14/20 Blood Culture - Preliminary, Resulted No growth after 24 hours . All specim... 10/14/20 Urine Culture - Final, Complete Current Medications Current Medications Medications (Trade) Dose Ordered Sig/Liam Route PRN Reason Start Time Stop Time Status Last Admin Dose Admin Acetaminophen (Tylenol Tab) 650 mg Q4H PRN PO PAIN OR FEVER 10/14/20 14:10 Acetaminophen/ Hydrocodone Bitart (Lane, Anexsia 5/325) 1 tab Q4HP PRN PO MILD/MODERATE PAIN (PS 1-7) 10/14/20 14:10 10/16/20 04:20 Al Hydrox/Mg Hydrox/Simethicone (Mylanta) 30 ml DAILY PRN PO DYSPEPSIA 10/14/20 14:10 10/14/20 19:43 Dextrose (Dextrose 50%) 25 ml ASDIRECTED PRN IV SEE LABEL COMMENTS 10/14/20 19:20 Docusate Sodium (Colace) 100 mg BID PO 10/14/20 21:00 10/16/20 08:13 Fentanyl Citrate (Sublimaze) 25 mcg Q5MP PRN IV PAIN LEVEL 5-10 10/15/20 13:00 10/15/20 14:00 DC Glucagon (Glucagon) 1 mg ASDIRECTED PRN SC SEE LABEL COMMENTS 10/14/20 19:20 Glucose (Glucose) 16 GM ASDIRECTED PRN PO SEE LABEL COMMENTS 10/14/20 19:20 Heparin Sodium (Porcine) (Heparin) 5,000 units Q8H SC 10/14/20 14:10 10/16/20 06:47 Home Med (Med Rec Complete!) ASDIRECTED XX 10/14/20 10:50 10/14/20 10:52 DC Hydromorphone HCl (Dilaudid) 0.2 mg Q5MP PRN IV PAIN LEVEL 4-7 10/15/20 13:00 10/15/20 14:00 DC Insulin Human Lispro (HumaLOG INSULIN) SEE PROTOCOL TABLE AC SC 10/15/20 07:30 Insulin Human Lispro (HumaLOG INSULIN) SEE PROTOCOL TABLE QHS SC 10/14/20 21:00 Ketorolac Tromethamine (ToRADol) 30 mg Q6H IV 10/15/20 16:00 10/20/20 15:59 10/16/20 10:31 Lactated Ringer's 1,000 ml @ 100 mls/hr Q10H IV 10/15/20 13:00 10/15/20 14:00 DC Lactated Ringer's 1,000 ml @ 175 mls/hr Q5H43M IV 10/14/20 15:25 10/15/20 08:55 DC 10/15/20 02:25 Magnesium Hydroxide (Milk Of Magnesia) 30 ml DAILY PRN PO CONSTIPATION 10/14/20 14:10 Morphine Sulfate (Morphine Sulfate Inj) 2 mg Q4H PRN IV SEVERE BREAKTHROUGH PAIN 10/14/20 14:10 10/15/20 07:02 Ondansetron HCl (ZOFRAN INJection) 4 mg Q4HP PRN IV NAUSEA OR VOMITING 10/14/20 14:10 Ondansetron HCl (ZOFRAN INJection) 4 mg Q4HP PRN IV NAUSEA OR VOMITING 10/15/20 13:00 10/15/20 14:00 DC Oxycodone HCl (Roxicodone, Oxyir) 5 mg ASDIRECTED PRN PO PAIN LEVEL 1-4 10/15/20 13:00 10/15/20 14:00 DC 10/15/20 13:35 Pantoprazole Sodium (Protonix) 40 mg DAILY IV 10/15/20 09:00 10/16/20 08:13 Piperacillin Sod/ Tazobactam Sod 4.5 gm/Dextrose 50 ml @ 50 mls/hr Q6H IV 10/14/20 17:00 10/16/20 12:21 Allergies Coded Allergies: No Known Allergies (Verified Allergy, Unknown, 10/07/20) acetylcysteine (Verified Allergy, Unknown, ARM SWELLING, HIVES, DIZZY, 10/14/20) Susannah Jimenez MD Oct 16, 2020 12:53
[2020-10-16 13:05] VITALS: BP 145/93
--- NOTE | 2020-10-16 13:38 | IPNPDOC ---
Text Note Date of Service The patient was seen on 10/16/20. NOTE Gen. surgery. Dr. Machado The patient is a 35-year-old female status post laparoscopic cholecystectomy 10/15/[address] Machado. Patient states she is feeling much better today. She still has some generalized soreness but overall feeling a lot better. She denies nausea, vomiting, diarrhea, constipation. Day she had a bowel movement this morning. Tolerating clear liquids. Afebrile VSS General. The patient is out of bed sitting in a chair. No acute distress. Lungs clear to auscultation S1-S2 regular rate rhythm Abdomen. Surgical sites clean dry and intact with no drainage. CAROLYN drain in place, there is cloudy blood tinged drainage noted. Extremities with no edema. WBC 16.3, hemoglobin 10.7, platelets 285. AST 32, ALT 52, alkaline phosphatase 132. Total bilirubin 0.8 Blood cultures 2 negative. Assessment/plan Status post laparoscopic cholecystectomy as per Dr. Machado 10/15/20. Patient is recovering well. She is afebrile. Blood cell count is noted to be 16.3 compared with 15.9 yesterday. He does have some cloudy drainage in her CAROLYN drain. Plan is to continue with IV Zosyn. Plan to advance diet as tolerated. Monitor for signs of infection, possibly consider discharge tomorrow. VS,Fishbone, I+O VS, Fishbone, I+O Laboratory Tests 10/16/20 05:02 Vital Signs Date Time Temp Pulse Resp B/P (MAP) Pulse Ox O2 Delivery O2 Flow Rate FiO2 10/16/20 13:05 98.7 85 17 145/93 (110) 99 Room Air 10/15/20 12:45 10 I&O- Last 24 Hours up to 6 AM 10/16/20 06:00 Intake Total 5125 ml Output Total 790 ml Balance 4335 ml Jennifer Rivera Oct 16, 2020 13:38
[2020-10-16 22:00] VITALS: BP 144/90
[2020-10-17] MEDS: KETOROLAC 30 MG/ML 1ML VIAL IV SCH ×2 (04:14→10:19)
[2020-10-17] MEDS: PIPERACILLIN/TAZOBACTAM SOD 4.5 GM in D5W MINI-BAG PLUS 50 ML IV SCH (04:14)
[2020-10-17 06:00] VITALS: BP 143/88
[2020-10-17] MEDS: HEPARIN SOD (PORCINE) 5000UNITS/ML 1ML VIAL/SYRINGE SC SCH (06:10)
[2020-10-17 07:09] LABS: BASO % 0.2 % (0.0-1.0); EOS # 0.1 10^3/uL (0.0-0.5); EOS % 0.4 % (0.0-3.0); HEMATOCRIT 30.8 % (36.0-47.0); HEMOGLOBIN 10.2 g/dl (12.0-15.5); LYMPH # 1.3 10^3/uL (1.5-5.0); LYMPH % 10.6 % (24.0-44.0); MEAN CORPUSCULAR HEMOGLOBIN 29.3 pg (27.0-33.0); MEAN CORPUSCULAR HGB CONC 33.1 g/dl (32.0-36.5); MEAN CORPUSCULAR VOLUME 88.5 fl (80.0-96.0); MONO # 1.1 10^3/uL (0.0-0.8); MONO % 9.1 % (2.0-8.0); NEUTROPHILS # 9.5 10^3/uL (1.5-8.5); NEUTROPHILS % 78.6 % (36.0-66.0); PLATELET COUNT, AUTOMATED 253 10^3/uL (150-450); RED BLOOD COUNT 3.48 10^6/uL (4.00-5.40); WHITE BLOOD COUNT 12.1 10^3/uL (4.0-10.0)
[2020-10-17] MEDS: HumaLOG INSULIN (NovoLOG) PER UNIT SC SCH (07:30)
[2020-10-17 07:36] LABS: ALBUMIN 2.2 GM/DL (3.2-5.2); ALT/SGPT 43 U/L (12-78); BILIRUBIN,TOTAL 0.7 MG/DL (0.2-1.0); BLOOD UREA NITROGEN 13 MG/DL (7-18); CALCIUM LEVEL 8.7 MG/DL (8.5-10.1); CARBON DIOXIDE LEVEL 25 MEQ/L (21-32); CHLORIDE LEVEL 103 MEQ/L (98-107); CREATININE FOR GFR 0.63 MG/DL (0.55-1.30); GLOMERULAR FILTRATION RATE > 60.0 (>60); GLUCOSE, FASTING 96 MG/DL (70-100); MAGNESIUM LEVEL 2.2 MG/DL (1.8-2.4); POTASSIUM SERUM 3.4 MEQ/L (3.5-5.1); SODIUM LEVEL 135 MEQ/L (136-145); TOTAL PROTEIN 6.8 GM/DL (6.4-8.2)
[2020-10-17] MEDS ORDERED: POTASSIUM CHLORIDE 10 MEQ SR TABLET PO ONE (08:15)
[2020-10-17] MEDS ORDERED: AUGM875T28 PO (08:53)
[2020-10-17] MEDS: DOCUSATE SODIUM 100MG CAPSULE PO SCH (10:18)
[2020-10-17] MEDS: PANTOPRAZOLE 40MG VIAL (C9113 PER 1) IV SCH (10:19)
--- NOTE | 2020-10-17 15:31 | DS.PDOC ---
Discharge Summary General Date of Admission Oct 14, 2020 at 14:06 Date of Discharge 10/17/20 Attending Physician: Susannah Jimenez MD Discharge Summary HISTORY OF PRESENT ILLNESS: 35-year-old female with a history of gestational diabetes, presented to the [facility] ER from [facility] with epigastric pain since 10/12/20 without nausea and vomiting. Patient has a history of cholestasis, cho ledocholithiasis, which required ERCP with stenting of CBD x 2 due to persistent CBD obstruction. Patient was planned for an elective cholecystectomy by Dr. Machado on 10/15/20. Patient states that she is not expressing any fevers or chills, any nausea or vomiting and is not passing any blood in her stool nor she experiencing any hematemesis. On arrival to the ED, she was initially afebrile but then developed fever 100.9. White blood cell count revealed 17.4. Hemoglobin 13.7, NA 138, K+ 3.5. Fasting glucose 132. Total bilirubin 2.1. Regular 1.3. Alkaline phosphatase 136. Normal AST and ALT. Lipase 427. Her ultrasound shows findings compatible with acute cholecystitis as well as possible gallstone lodged in the gallbladder neck. There is CBD dilation to 13.6 mm but previously placed CBD stent is identified. There is additionally hepatic steatosis noted on ultrasound. Patient received IV bolus as well as started on Zosyn in the ER. Depression. I was consulted, recommended MRI of the abdomen with and without contrast. Although there does appear to be gallstone pancreatitis. It is relativ kellee mild and he recommends treating this case as an acute cholecystitis. Surgery Dr. Machado was also consulted. Patient will be admitted to hospitalist service for management of sepsis secondary to acute cholecystitis. HOSPITAL COURSE: Patient had cholecystectomy for acute cholecystitis with perforation on 10/15/20, Dr. Machado. Over the next several days, sepsis resolved, WBC improving slowly, remained afebrile. IV abx were continued. On 10/17/20 CAROLYN drain was taken out and decision was made to discharge with augmentin PO x 5 days, f/u with general surgery as o/p. For possible gallstone pancreatitis, lipase did not worsen, T bili , AST/ALT wnl. Elective removal of the CBD covered metal stent after the cholecystectomy likely to be discussed as o/p, she is already established with Dr. chandrala (GI) in the community. At discharge, she denied increased abd pain, shortness of breath, fevers, chills, n/v/d. PAST MEDICAL HISTORY: Gestational diabetes COVID-19 in 04/2020 PAST SURGICAL HISTORY: ERCP x 2, s/p stenting x 2 SOCIAL HISTORY: 25 year PPD former smoker, quit Rare etoh use Denies illicits Lives with and 2 children FAMILY HISTORY: Mother with history of thyroid problems Father with a history of heart disease, stroke and elevated liver enzymes Mothers side with a history of breast cancer and fathers side with a history of pancreatic cancer DISCHARGE MEDICATIONS: Please see below PHYSICAL EXAMINATION: VITAL SIGNS: please see below General: NAD, comfortable HEENT: PERRLA, EOMI, sclerae clear Neck: supple, normal ROM, no JVD Respiratory: lungs CTAB, no wheeze, no rales, no crackles CVS: RRR, normal S1, S2, no murmurs Abdo: Diffuse abdominal pain and to palpation, constant. Abdomen is obese. No guarding, no rigidity. CAROLYN drain in place Extremities: no edema, pulses 2+ MSK: no joint deformities, normal ROM Neuro: no focal neuro deficits, moving all 4 extremities, CN2-12 intact. Strength 5/5 in all 4 extremities. No nystagmus. Psych: calm, cooperative, AAO x 3 LABORATORY DATA: See below. IMAGING: MRI abdomen: Findings consistent with cholecystitis. Moderately distended gallbladder, with significant gallbladder wall thickening, irregularity and edema. Multiple subcentimeter calculi within the gallbladder lumen. There is a subcentimeter c alculus in the neck of the gallbladder at the junction with the cystic duct. There is mild adjacent free fluid, adjacent to the gallbladder and in the agapito hepatis. A tiny amount of fluid surrounds the liver. Mildly enlarged portal lymph node measures 1.3 cm in short axis dimension. Mild prominence of central intrahepatic ducts. Common bile duct stent is noted with no internal filling defect. Diffuse fatty infiltration of the liver. Hepatosplenomegaly. Liver ultrasound (10/14/20): 1. Findings compatible with acute cholecystitis. Findings as described above including possible gallstone lodged at the gallbladder neck. 2. Common bile duct is dilated to 13.6 mm but previously placed CBD stent is identified. 3. Hepatosteatosis. MICROBIOLOGY: Please see below. ASSESSMENT: 35-year-old female with a history of gestational diabetes, admitted for sepsis secondary to acute cholecystitis. PLAN: Acute cholecystitis with perforation, resolved sepsis -POD 2 cholecystectomy -WBC improving slowly, afebrile -MRI, US above -BCx NG, path neg for malignancy -D/c CAROLYN drain today. Discharge with augmentin PO x 5 days, f/u with general surgery as o/p. Possible gallstone pancreatitis -Lipase 427 -T bili , AST/ALT wnl -Elective removal of the CBD covered metal stent after the cholecystectomy likely to be discussed as o/p, she is already established with Dr. suazo (GI) in the community Hypokalemia, acute -K 3.4 -S/p supplementation -F/u with PCP Gestational DM Hx DISPOSITION: D/c home with f/u with surgery, PCP. TIME SPENT ON DISCHARGE: 35 minutes. Vital Signs/I&Os Vital Signs Date Time Temp Pulse Resp B/P (MAP) Pulse Ox O2 Delivery O2 Flow Rate FiO2 10/17/20 06:00 98.3 74 20 143/88 (106) 98 Room Air 10/15/20 12:45 10 I&O- Last 24 Hours up to 6 AM 10/17/20 06:00 Intake Total 1480 ml Output Total 50 ml Balance 1430 ml Laboratory Data Labs 24H Laboratory Tests 2 10/17/20 06:42: Immature Granulocyte % (Auto) 1.1, Neutrophils (%) (Auto) 78.6H, Lymphocytes (%) (Auto) 10.6L, Monocytes (%) (Auto) 9.1H, Eosinophils (%) (Auto) 0.4, Basophils (%) (Auto) 0.2, Neutrophils # (Auto) 9.5H, Lymphocytes # (Auto) 1.3L, Monocytes # (Auto) 1.1H, Eosinophils # (Auto) 0.1, Basophils # (Auto) 0.0, Nucleated Red Blood Cells % (auto) 0.0, Anion Gap 7L, Glomerular Filtration Rate > 60.0, Calcium Level 8.7, Magnesium Level 2.2, Total Bilirubin 0.7, Aspartate Amino Transf (AST/SGOT) 23, Alanine Aminotransferase (ALT/SGPT) 43, Alkaline Phosphatase 116, Total Protein 6.8, Albumin 2.2L, Albumin/Globulin Ratio 0.5L CBC/BMP Laboratory Tests 10/17/20 06:42 Microbiology Microbiology 3/8/21 Blood Culture - Preliminary, Resulted No Growth after 48 hours. All Specime... 10/14/20 Blood Culture - Preliminary, Resulted No Growth after 48 hours. All Specime... 10/14/20 Urine Culture - Final, Complete Discharge Medications Scheduled Amoxicillin/Potassium Clav (Augmentin 875-125 Tablet) 1 Each Tablet, 1 TAB PO BID Famotidine (Famotidine) 40 Mg Tablet, 40 MG PO DAILY, (Reported) Scheduled PRN Ibuprofen (Ibu-200) 200 Mg Tablet, 600 MG PO QID PRN for PAIN, (Reported) Ondansetron HCl (Ondansetron HCl) 4 Mg Tablet, 4 MG PO Q4H PRN for NAUSEA OR VOMITING, (Reported) Allergies Coded Allergies: No Known Allergies (Verified Allergy, Unknown, 10/07/20) acetylcysteine (Verified Allergy, Unknown, ARM SWELLING, HIVES, DIZZY, 10/14/20) Susannah Jimenez MD Oct 17, 2020 15:31
--- NOTE | 2020-10-17 15:46 | IPNPDOC ---
Text Note Date of Service The patient was seen on 10/17/20. NOTE Gen. surgery. Dr. Machado The patient is a 35-year-old female status post laparoscopic cholecystectomy 10/15/[address] Machado. Patient states she is feeling good, eating and drinking. Overall feeling a lot better. She denies nausea, vomiting, diarrhea, constipation. Tolerating regular diet. Afebrile VSS General. The patient is out of bed sitting in a chair. No acute distress. Lungs clear to auscultation S1-S2 regular rate rhythm Abdomen. Surgical sites clean dry and intact with no drainage. CAROLYN drain in place, there is a small amount of drainage, drainage in CAROLYN is clear today. Extremities with no edema. WBC 12.1, down trending LFTs within normal limits Blood cultures 2 negative. Assessment/plan Status post laparoscopic cholecystectomy as per Dr. Machado 10/15/20. The patient has small amount of drainage in her CAROLYN drain, this is clear today and no longer cloudy, pink serosanguineous. Plan to remove CAROLYN drain. Plan for discharge today with continued oral antibiotics, Augmentin 875 by mouth twice a day for an additional 5 days. Outpatient follow-up with Dr. Machado in 2 weeks. . VS,Fishbone, I+O VS, Fishbone, I+O Laboratory Tests 10/17/20 06:42 Vital Signs Date Time Temp Pulse Resp B/P (MAP) Pulse Ox O2 Delivery O2 Flow Rate FiO2 10/17/20 06:00 98.3 74 20 143/88 (106) 98 Room Air 10/15/20 12:45 10 I&O- Last 24 Hours up to 6 AM 10/17/20 06:00 Intake Total 1480 ml Output Total 50 ml Balance 1430 ml Jennifer Rivera Oct 17, 2020 15:46
--- NOTE | 2020-10-28 11:56 | RO ---
OPERATIVE NOTE DATE OF OPERATION: 10/14/2020 PREOPERATIVE DIAGNOSIS: Acute cholecystitis. POSTOPERATIVE DIAGNOSIS: Acute cholecystitis with gallbladder perforation and peritonitis. PROCEDURE: Laparoscopic cholecystectomy. SURGEON: Juan Machado Jr, MD STRUCTURES ENGINEER: ANESTHESIA: General endotracheal anesthesia. EBL: 100 mL. FLUIDS: Crystalloid. DESCRIPTION OF PROCEDURE: The patient was brought to the operating room, was given general anesthesia. After adequate anesthesia and preoperative antibiotics were given, the patient was prepped and draped in usual sterile fashion. A supraumbilical incision was made with skin knife. Blunt dissection was carried down to fascia and Veress needle placed into the abdominal cavity, insufflated with 15 mm of pressure. Dilating 10 mm trocar was placed and under direct visualization an epigastric and two lateral trocars were placed. There was omentum in the epigastric area that was adherent to the gallbladder and the liver edge in this site and at this time there was a palpable inflammatory mass underneath this. Thus, after placing the patient in reverse Trendelenburg position left side down the omentum was slowly taken off this and what I encountered was a good deal of purulent fluid and essentially the gallbladder had perforated in this area and I was able to actually suction out the gallbladder. Once I was able to take this omentum off bluntly as well as with electrocautery eventually this was mobilized even further down to the neck of the gallbladder. Once this was mobilized adequately and the gallbladder was able to be grasped the gallbladder was retracted superiorly and the neck of the gallbladder was cleared of peritoneum very slowly and using Endo Peanuts eventually I was able to mobilize the neck of the gallbladder laterally and then anteriorly and then over to the medial side and then working back and forth window was created behind the neck of the gallbladder. The cystic artery was visualized and clipped. The gallbladder which had been quite necrotic superiorly was all inflamed inferiorly and the size of the opening of the gallbladder/cystic duct area was rather sizable. Thus I transected it right at the gallbladder side and placed an Endoloop across this and then two clips were placed on the cystic duct. There was one lumen seen and the sacnhez of the cystic duct were extremely edematous but otherwise no other significant abnormality, no bile leakage in this area. The gallbladder was removed from the gallbladder bed using electrocautery, was placed in Endo Catch bag, brought out through the umbilicus. However, because of the amount of purulent discharge I placed a Thomas-Becerra drain in the subcostal area through one of the trocar sites and left it in the bed of the dissection. All trocars were removed under direct visualization after the right upper quadrant was copiously irrigated until clear. #0 Vicryl was used to close the fascia at the umbilicus. 4-0 Vicryl was used to close all incisions. Steri-Strips and dry, sterile dressing was applied. The patient was awakened from her anesthesia, extubated and brought to the recovery room awake, alert and hemodynamically stable. Sponge and needle counts correct x2.
== END 2020-10-17 11:20 | disposition home or self-care (01) | DRG 710 ==
LOC: M ED 08:30 → M ED INP 14:06 → ENRESERV 14:38 → M MSPAV 15:02 → M PCU 16:45 → M RR INP 10-15 09:04 → M PCU 10-15 13:59 → M MS5PR 10-16 13:01
PROVIDERS: ADMIT Family Medicine; ATTEND Internal Medicine
PROC: 0FT44ZZ Resection of Gallbladder, Percutaneous Endoscopic Approach (ICD-10-PCS; principal; 2020-10-15 09:10)
DX: A41.9 Sepsis, unspecified organism (principal); K85.10 Biliary acute pancreatitis without necrosis or infection; K80.62 Calculus of gallbladder and bile duct with acute cholecystitis without obstruction; E83.42 Hypomagnesemia; E87.6 Hypokalemia; Z86.16 Personal history of COVID-19; Z86.32 Personal history of gestational diabetes; Z87.891 Personal history of nicotine dependence; Z20.822 Contact with and (suspected) exposure to COVID-19; Z79.899 Other long term (current) drug therapy

== ENCOUNTER → 2020-12-23 | Outpatient (CLI) | payer OTHER ==
[~2020-12-23] MED LIST changes: +AUGM875T28 PO; +GASTROGRAFIN SOLUTION 30ML (Q9963) As Ordered ONE; +IBUP200T45 PO; +ISOVUE-370 76% 100ML VIAL As Ordered ONE; +ONDA-83 PO
--- NOTE | 2020-12-24 02:42 | REP ---
INDICATION: CALCULUS OF GALLBLADDER. COMPARISON: 09/18/2020 TECHNIQUE: Axial contrast-enhanced images of the abdomen using oral and 100 cc Isovue 370 intravenous contrast material with coronal and sagittal reformations. . This CT examination was performed using the following dose reduction techniques: Automated exposure control, adjustment of mA and/or kv according to the patient's size, and use of iterative reconstruction technique. FINDINGS: Diffuse hepatosteatosis noted without focal hepatic lesion. Patient appears to be status post cholecystectomy with CBD stent placement and small amount of pneumobilia. No abnormal fluid collection or inflammatory stranding in the gallbladder fossa or right upper quadrant is appreciated. Spleen, pancreas, bilateral adrenal glands and kidneys are normal. Visualized small and large bowel is unremarkable. No free air. No ascites. No significant adenopathy. Visualized abdominal aorta is unremarkable. Lung bases are clear. Visualized heart and pericardium normal. Musculoskeletal structures are intact. IMPRESSION: 1. Hepatosteatosis. 2. Status post cholecystectomy and CBD stent placement with small amount of pneumobilia. <Electronically signed by Omero Grissom > 12/24/20 [id number]
== END ==
LOC: M RAD 15:39
PROVIDERS: ATTEND Internal Medicine Gastroenterology
DX: K80.20 Calculus of gallbladder without cholecystitis without obstruction (principal)
CPT/HCPCS: 74160; Q9963; Q9967

== ENCOUNTER → 2021-01-08 | Outpatient (CLI) | payer OTHER ==
[~2021-01-08] MED LIST changes: +ACET-683 PO; -GASTROGRAFIN SOLUTION 30ML (Q9963) As Ordered ONE; -ISOVUE-370 76% 100ML VIAL As Ordered ONE
== END ==
LOC: M LABSMTC 10:56
PROVIDERS: ATTEND Anesthesiology
DX: Z01.818 Encounter for other preprocedural examination (principal); Z11.52 Encounter for screening for COVID-19

== ENCOUNTER 2021-01-13 13:22 | Day surgery (SDC) | payer OTHER ==
[~2021-01-13] VITALS: Ht 147.3 cm; Wt 113.8 kg
[~2021-01-13 13:22] MED LIST changes: +NS 1,000 ML IV ONE
[2021-01-13] MEDS ORDERED: fentaNYL 100 MCG/2 ML INJECTION (J3010) As Ordered ONE (13:41)
[2021-01-13] MEDS ORDERED: MIDAZOLAM INJ 2MG/2ML VIAL (J2250 PER 1MG) As Ordered ONE (13:41)
[2021-01-13] MEDS ORDERED: ROCURONIUM BROMIDE 50 MG/5 ML VIAL As Ordered ONE (13:41)
[2021-01-13] MEDS ORDERED: dexameTHASONE 4 MG/ML 1ML VIAL (J1100 PER 1MG) As Ordered ONE (13:42)
[2021-01-13] MEDS ORDERED: ONDANSETRON 4MG/2ML VIAL As Ordered ONE (13:42)
[2021-01-13] MEDS ORDERED: LIDOCAINE 2% 100MG/5ML SDV (FOR ANES.) As Ordered ONE (13:42)
[2021-01-13] MEDS ORDERED: propofoL 200 MG/20 ML VIAL As Ordered ONE (13:42)
[2021-01-13] MEDS ORDERED: ISOVUE-300 61% 50ML VIAL As Ordered ONE (16:02)
[2021-01-13] MEDS ORDERED: SCOPOLAMINE 1MG TRANSDERMAL PATCH As Ordered ONE (16:16)
[2021-01-13] MEDS ORDERED: SCOPOLAMINE 1MG TRANSDERMAL PATCH TOP ONE (16:25)
[2021-01-13] MEDS ORDERED: SUGAMMADEX SODIUM 500 MG/5 ML VIAL (BRIDION) As Ordered ONE (16:54)
[2021-01-13] MEDS ORDERED: fentaNYL 100 MCG/2 ML INJECTION (J3010) IV PRN (17:40)
[2021-01-13] MEDS ORDERED: oxyCODONE 5MG TAB PO PRN (17:40)
[2021-01-13] MEDS ORDERED: ONDANSETRON 4MG/2ML VIAL IV PRN (17:40)
[2021-01-13] MEDS ORDERED: LR 1,000 ML IV SCH (17:40)
--- NOTE | 2021-01-13 17:44 | REP ---
INDICATION: REMOVAL OF COMMON BILE DUCT STENT AND STONE. COMPARISON: None TECHNIQUE: 53 minutes and 3 seconds of fluoroscopy time was provided for the exam Eighty-six spot views were obtained using a portable C-arm device FINDINGS: Varying degrees of biliary duct contrast opacification is seen throughout the exam. Small amount of contrast material is seen opacifying the proximal duodenum. No persistent filling defects are seen in the biliary tract. IMPRESSION: As above. <Electronically signed by Jordan Huggins > 01/13/21 [id number]
--- NOTE | 2021-01-13 17:45 | ROOR ---
Patient Name: Pema Lugo Procedure Date: 01/13/2021 4:07 PM Date of : 1985 Age: 35 Room: [facility] Gender: Female Note Status: Finalized Procedure: ERCP Indications: Bile duct stone(s), Biliary stent removal Providers: Johnnie Daniels MD Referring MD: [facility] DEMET[facility] M[facility], Admin. Requesting Provider: Medicines: Monitored Anesthesia Care Complications: No immediate complications. Procedure: Pre-Anesthesia Assessment: - Prior to the procedure, a History and Physical was performed, and patient medications and allergies were reviewed. The patient is competent. The risks and benefits of the procedure and the sedation options and risks were discussed with the patient. All questions were answered and informed consent was obtained. Patient identification and proposed procedure were verified by the physician, the nurse and the anesthesiologist in the procedure room. Mental Status Examination: alert and oriented. Airway Examination: normal oropharyngeal airway and neck mobility. Respiratory Examination: clear to auscultation. CV Examination: normal. Prophylactic Antibiotics: The patient does not require prophylactic antibiotics. Prior Anticoagulants: The patient has taken no previous anticoagulant or antiplatelet agents. ASA Grade Assessment: II - A patient with mild systemic disease. After reviewing the risks and benefits, the patient was deemed in satisfactory condition to undergo the procedure. The anesthesia plan was to use general anesthesia. Immediately prior to administration of medications, the patient was re-assessed for adequacy to receive sedatives. The heart rate, respiratory rate, oxygen saturations, blood pressure, adequacy of pulmonary ventilation, and response to care were monitored throughout the procedure. The physical status of the patient was re-assessed after the procedure. The Duodenoscope was introduced through the mouth, and advanced to the duodenum and used to inject contrast into the bile duct. The ERCP was accomplished without difficulty. The patient tolerated the procedure well. Findings: A biliary stent was visible on the manager enterprise film. The esophagus was successfully intubated under direct vision without detailed examination of the pharynx, larynx, and associated structures, and upper GI tract. The upper GI tract was grossly normal. One covered metal stent originating in the biliary tree was emerging from the major papilla. The stent was partially occluded. One stent was removed from the common bile duct using a 9 mm balloon. A 0.035 inch x 260 cm straight Hydra Jagwire was passed into the biliary tree. The short-nosed traction sphincterotome was passed over the guidewire and the bile duct was then deeply cannulated. Contrast was injected. I personally interpreted the bile duct images. Ductal flow of contrast was adequate. Image quality was adequate. Contrast extended to the entire biliary tree. The main bile duct contained filling defect(s) thought to be a stone and sludge. A biliary sphincterotomy had been performed. The sphincterotomy appeared open. The biliary tree was swept with a 9 mm balloon starting at the bifurcation. Sludge was swept from the duct. All stones were removed. Occlusion cholangiogram at the end of the procedure did not show any residual filling defects. Pancreatic duct was neither cannulated nor opacified. Impression: - One partially occluded stent from the biliary tree was seen in the major papilla. - Prior biliary sphincterotomy appeared open. - A filling defect consistent with a stone and sludge was seen on the cholangiogram. - Choledocholithiasis was found. Complete removal was accomplished by balloon extraction. - One stent was removed from the common bile duct. - The biliary tree was swept. Recommendation: - The patient will be observed post-procedure, until all discharge criteria are met. - Patient has a contact number available for emergencies. The signs and symptoms of potential delayed complications were discussed with the patient. Return to normal activities tomorrow. Written discharge instructions were provided to the patient. - Avoid aspirin and nonsteroidal anti-inflammatory medicines. - Full liquid diet today, then advance as tolerated to high fiber diet and low fat diet. - Telephone GI clinic if symptomatic. - Return to primary care physician. Procedure Code(s): --- Professional --- 24709, Endoscopic retrograde cholangiopancreatography (ERCP); with removal of foreign body(s) or stent(s) from biliary/pancreatic duct(s) 22220, Endoscopic retrograde cholangiopancreatography (ERCP); with removal of calculi/debris from biliary/pancreatic duct(s) 23665, 26, Endoscopic catheterization of the biliary ductal system, radiological supervision and interpretation Diagnosis Code(s): --- Professional --- T85.590A, Other mechanical complication of bile duct prosthesis, initial encounter K80.50, Calculus of bile duct without cholangitis or cholecystitis without obstruction Z46.59, Encounter for fitting and adjustment of other gastrointestinal appliance and device R93.2, Abnormal findings on diagnostic imaging of liver and biliary tract CPT copyright 2019 [employer]. All rights reserved. The codes documented in this report are preliminary and upon payable manager review may be revised to meet current compliance requirements. Johnnie Daniels MD Johnnie Daniels MD 01/13/2021 5:44:38 PM Electronically signed by Johnnie Daniels MD Number of Addenda: 0 Note Initiated On: 01/13/2021 4:07 PM Estimated Blood Loss: Estimated blood loss: none.
[2021-01-13 18:12] VITALS: BP 146/85
== END 2021-01-13 18:20 | disposition home or self-care (01) ==
LOC: M SDC 13:22
PROVIDERS: ATTEND Internal Medicine Gastroenterology
DX: K80.50 Calculus of bile duct without cholangitis or cholecystitis without obstruction (principal); R93.2 Abnormal findings on diagnostic imaging of liver and biliary tract; R51.9 Headache, unspecified; R56.9 Unspecified convulsions; Z88.8 Allergy status to other drugs, medicaments and biological substances
CPT/HCPCS: 43264; 43275; 74330; 81025; J1100; J2250; J2405; J3010; Q9967

== ENCOUNTER → 2022-12-03 | Outpatient (REF) | payer OTHER, MEDICAID ==
[~2022-12-03] MED LIST changes: -NS 1,000 ML IV ONE
[2022-12-03 18:45] LABS: ALBUMIN 3.6 G/DL (3.2-5.2); ALKALINE PHOSPHATASE 106 U/L (46-116); ALT/SGPT 33 U/L (7.0-40); AST/SGOT 26 U/L (<34); BILIRUBIN,TOTAL 0.5 MG/DL (0.3-1.2); BLOOD UREA NITROGEN 11 MG/DL (9-23); CALCIUM LEVEL 8.9 MG/DL (8.5-10.1); CARBON DIOXIDE LEVEL 30 MMOL/L (20-31); CHLORIDE LEVEL 102 MMOL/L (98-107); CHOLESTEROL LEVEL 142 MG/DL (<200); CHOLESTEROL RISK RATIO 3.08 (<5); CREATININE FOR GFR 0.73 MG/DL (0.55-1.30); FREE T4 0.94 NG/DL (0.89-1.76); GLOMERULAR FILTRATION RATE > 60.0 (>60); GLUCOSE, FASTING 92 MG/DL (60-100); HDL CHOLESTEROL 46.1 MG/DL (>40); LDL CHOLESTEROL 72.9 MG/DL (<100); NON-HDL-C 95.9 MG/DL; POTASSIUM SERUM 4.2 MMOL/L (3.5-5.1); SODIUM LEVEL 139 MMOL/L (136-145); THYROID STIMULATING HORMONE 3.203 uIU/ML (0.55-4.78); TOTAL PROTEIN 7.3 G/DL (5.7-8.2); TRIGLYCERIDES LEVEL 115 MG/DL (<150)
== END ==
LOC: M SFHCLERA 11:28
PROVIDERS: ATTEND Student in an Organized Health Care Education/Training Program
DX: F41.9 Anxiety disorder, unspecified (principal); E66.01 Morbid (severe) obesity due to excess calories